=== PATIENT | female | born 1995 | race Caucasian/White ===

== ENCOUNTER → 2017-09-01 13:10 | Outpatient (CLI) | payer MEDICAID, SELFPAY ==
--- NOTE | 2017-09-01 13:18 | US_ITS ---
US OB /maternal detail: INDICATION: ITS.REASON: OB Complete 20 wk + Anatomy Scan ORDERING PHYSICIAN: Vijay Mcmanus MD PATIENT AGE: 22 years TECHNIQUE: ultrasound transabdominal scanning. COMPARISON: No previous relevant studies. FINDINGS: Single viable intrauterine gestation. cephalic position. Placenta: Anterior placenta grade 1. There is average amount fluid. The cervix appears satisfactory. Closed and measuring 3 cm in length. Complete survey performed and was unremarkable on the submitted images as in PACS. No discrete anomalies identified on survey imaging by technologist. Active fetus. Three-vessel cord with satisfactory umbilical cord insertion. 4- chamber heart noted. Survey of brain & ventricles. Face and neck survey unremarkable. Diaphragm and chest views unremarkable. Abdomen: Both kidneys noted and unremarkable. Stomach noted and satisfactory. Spine: Survey of the spine satisfactory with no anomalies identified nor imaged. Both arms and legs noted. Amniotic Fluid: Adequate. Maternal adnexa: No significant findings. Measurements: Average ultrasound age 19w5d. Gestational Age 19w6d. Estimated due date by ultrasound age 0601/21/2018. Estimated weight 291 grams. BPD = 20w1d OFD = 20w4d HC = 19w5d AC = 20w0d FL = 18w5d Heart Rate = 144 bpm Cerebellum = 20w4d Humerus = 19w2d HC/AC is 1.16 (1.09-1.26). CI is 77% (70-68%). FL/BPD is 61%. FL/AC is 19%. IMPRESSION: There is a single live fetus in the cephalic presentation with an average ultrasound age of 19 weeks 5 days.No Obvious anomalies. heart and body motion noted. Anterior placenta. Please see above for detail.
== END ==
PROVIDERS: Family Provider Internal Medicine; PCP Internal Medicine; Visit Provider Nurse Practitioner Obstetrics & Gynecology
DX: Z36.0 Encounter for antenatal screening for chromosomal anomalies (principal)
CPT/HCPCS: 76811

== ENCOUNTER 2017-10-26 15:32 | Emergency (ER) | payer MEDICAID, SELFPAY ==
[2017-10-26 15:46] VITALS: BP 138/82; PULSE 97; RESP 20; TEMP 36.8; O2SAT 98; BMI 40.0
--- NOTE | 2017-10-26 16:36 | HMH.EDUTC ---
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 Give it time to work. Referrals: Vijay Mcmanus MD [Staff Physician] - (as needed for new or worsening symptoms. immediately for ANY change in movement or leaking/bleeding or abdominal pain) Time of Disposition: 16:50 Medical Decision Making - Miguel Inquiry Pt receiving controlled substance: No Vital Signs: 10/26/17 15:46 10/26/17 16:47 Temperature 98.2 F 98.0 F Temperature Source Oral Pulse Rate 95 H Pulse Rate [Right Radial] 97 H Respiratory Rate 20 20 Blood Pressure 135/75 Blood Pressure [Right Arm] 138/82 Blood Pressure Mean [Right Arm] 100 02 Sat by Pulse Oximetry 98 Oxygen Delivery Method Room Air Room Air [facility] [place] HPI - General Stated complaint: Sinus Congestion, Cough Time Seen by Provider: 10/26/17 16:36 Mode of Arrival: Family Vehicle Source of Information: Patient Limitations: No Limitations Description of Symptoms (Recalled from Triage Doc. by RN): PT C/O CONGESTION, SORE THROAT. HEENT Symptoms (Recalled from RN notes): Yes (SORE THROAT, CONGESTION) Resp Symptoms (Recalled from RN notes): No Skin Symptoms (Recalled from RN notes): No MS Symptoms (Recalled from RN notes): No Functional Status (Recalled from RN notes): NA - History of Present Illness Provider Complaint: c/o nasal congestion, rhinirrhea, PND and sore throat x 1 week. Currently 28 weeks w/o abdominal pain, vaginal leaking/bleeding, cramping or change in movement. Symptoms worse at night but unchanged throughout the week. Same symptoms during last . No known sick contacts. No fever. Wasn't sure what to take and too nervous to take anything. Tried claritin for 2 days but got nervous and quit taking it. - Related Data Home Medications Medication Instructions Recorded Confirmed 1 tab PO QHS 08/23/17 10/26/17 vitamin,calcium,hqnljhdf-oewn-toawy acid tablet Ferrous Sulfate [Ferrous Sulfate 325 mg PO DAILY 10/26/17 10/26/17 325mg Tablet] Allergies Allergy/AdvReac Type Severity Reaction Status Date / Time No Known Allergies Allergy Verified 10/19/17 13:48 - Worker's Comp Is this a Worker's Comp case?: No [facility] History I have reviewed the patient's past medical history: Yes Medical History: Denies:: Cancer, Diabetes Mellitus Type 1, Diabetes Mellitus Type 2, Hypertension, MRSA Comment: Other Surgeries: Yes: Amputation: No Fractures: No - Social History Smoking Status: Never smoker Alcohol Intake: never Substance Use Type: denies use - Psychiatric History Expresses thoughts of harming self/others: None Suicide Plan Description: No Plan Family Hx:: Hypertension ROS Obtained: Yes Systems reviewed as appropriate & no additional complaints - Constitutional Constitutional: Reports as per HPI, Denies body ache, Denies chills, Reports difficulty sleeping, Denies fatigue, Denies fever(s), Denies poor appetite - Eyes Eyes: Denies eye discharge, Denies itchy eyes, Denies other (eye redness) - ENT Ears, Nose, Mouth, and Throat: Reports as per HPI, Denies difficulty swallowing, Denies ear discharge, Reports otalgia (fullness and popping at times but no pain), Denies pain with swallowing, Denies throat swelling, Denies other (sneezing) - Cardiovascular Cardiovascular: Denies chest pain, Denies irregular heart rhythm - Respiratory Respiratory: No cough - Gastrointestinal Gastrointestingal: Reports: as per HPI. Denies: diarrhea, vomiting - Integumentary/Breasts Skin/Breast: Denies rash - Neurologic Neurologi
--- NOTE | 2017-10-26 16:44 | ED_ITS ---
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 Give it time to work. Referrals: Vijay Mcmanus MD [Staff Physician] - (as needed for new or worsening symptoms. immediately for ANY change in movement or leaking/bleeding or abdominal pain) Time of Disposition: 16:50 Medical Decision Making - Miguel Inquiry Pt receiving controlled substance: No Vital Signs: 10/26/17 15:46 10/26/17 16:47 Temperature 98.2 F 98.0 F Temperature Source Oral Pulse Rate 95 H Pulse Rate [Right Radial] 97 H Respiratory Rate 20 20 Blood Pressure 135/75 Blood Pressure [Right Arm] 138/82 Blood Pressure Mean [Right Arm] 100 02 Sat by Pulse Oximetry 98 Oxygen Delivery Method Room Air Room Air [facility] [place] HPI - General Stated complaint: Sinus Congestion, Cough Time Seen by Provider: 10/26/17 16:36 Mode of Arrival: Family Vehicle Source of Information: Patient Limitations: No Limitations Description of Symptoms (Recalled from Triage Doc. by RN): PT C/O CONGESTION, SORE THROAT. HEENT Symptoms (Recalled from RN notes): Yes (SORE THROAT, CONGESTION) Resp Symptoms (Recalled from RN notes): No Skin Symptoms (Recalled from RN notes): No MS Symptoms (Recalled from RN notes): No Functional Status (Recalled from RN notes): NA - History of Present Illness Provider Complaint: c/o nasal congestion, rhinirrhea, PND and sore throat x 1 week. Currently 28 weeks w/o abdominal pain, vaginal leaking/bleeding, cramping or change in movement. Symptoms worse at night but unchanged throughout the week. Same symptoms during last . No known sick contacts. No fever. Wasn't sure what to take and too nervous to take anything. Tried claritin for 2 days but got nervous and quit taking it. - Related Data Home Medications Medication Instructions Recorded Confirmed 1 tab PO QHS 08/23/17 10/26/17 vitamin,calcium,kadfxwjr-ycsp-zzaru acid tablet Ferrous Sulfate [Ferrous Sulfate 325 mg PO DAILY 10/26/17 10/26/17 325mg Tablet] Allergies Allergy/AdvReac Type Severity Reaction Status Date / Time No Known Allergies Allergy Verified 10/19/17 13:48 - Worker's Comp Is this a Worker's Comp case?: No [facility] History I have reviewed the patient's past medical history: Yes Medical History: Denies:: Cancer, Diabetes Mellitus Type 1, Diabetes Mellitus Type 2, Hypertension, MRSA Comment: Other Surgeries: Yes: Amputation: No Fractures: No - Social History Smoking Status: Never smoker Alcohol Intake: never Substance Use Type: denies use - Psychiatric History Expresses thoughts of harming self/others: None Suicide Plan Description: No Plan Family Hx:: Hypertension ROS Obtained: Yes Systems reviewed as appropriate & no additional complaints - Constitutional Constitutional: Reports as per HPI, Denies body ache, Denies chills, Reports difficulty sleeping, Denies fatigue, Denies fever(s), Denies poor appetite
[2017-10-26 16:47] VITALS: BP 135/75; PULSE 95; RESP 20; TEMP 36.7; O2SAT 100
== END 2017-10-26 16:52 | disposition home or self-care (01) ==
PROVIDERS: Emergency Provider Nurse Practitioner Family; Family Provider Internal Medicine; PCP Internal Medicine
DX: J30.9 Allergic rhinitis, unspecified (principal); Z3A.28 28 weeks gestation of pregnancy
CPT/HCPCS: 99201

== ENCOUNTER 2017-11-03 11:51 | Outpatient (CLI) | payer MEDICAID, SELFPAY ==
[2017-11-03 12:02] VITALS: BP 118/71; PULSE 90; RESP 16; TEMP 36.6; O2SAT 97; BMI 42.4
[2017-11-03 12:22] LABS: Microscopic, Urine URINE MICROSCOPIC (MICROSCOPIC)
[2017-11-03 12:27] LABS: Appearance,Urine CLEAR (Clear); Bilirubin,Urine Negative (Negative); Blood, Urine Negative (Negative); Color,Urine YELLOW (Yellow); Glucose,Urine (UA) Negative (Negative); Ketones,Urine TRACE (Negative); Leukocyte Esterase,Urine 3+ (Negative); Nitrate,Urine Negative (Negative); Protein,Urine Negative (Negative); Urobilinogen,Urine 0.2 EU/dl (0.2)
[2017-11-03 12:40] LABS: Fetal Membrane Rupture (Rapid) Negative (Negative)
[2017-11-03 12:54] LABS: Bacteria,Urine 1+ /lpf; Squamous Epithelial Cell,Urine 50-100 #/hpf (0-5)
== END 2017-11-03 13:30 | disposition home or self-care (01) ==
LOC: OBOUT 11:53 → OB 11:53
PROVIDERS: PCP Nurse Practitioner Obstetrics & Gynecology; Visit Provider Nurse Practitioner Obstetrics & Gynecology
DX: O26.893 Other specified pregnancy related conditions, third trimester (principal); Z3A.28 28 weeks gestation of pregnancy
CPT/HCPCS: 59025; 81001; 84112; 87086

== ENCOUNTER 2017-12-10 12:38 | Outpatient (CLI) | payer MEDICAID, SELFPAY ==
[2017-12-10 12:51] VITALS: BP 107/67; PULSE 100; RESP 18; TEMP 36.9; O2SAT 97; BMI 43.5
[2017-12-10 13:25] LABS: Microscopic, Urine URINE MICROSCOPIC (MICROSCOPIC)
[2017-12-10 13:28] LABS: Appearance,Urine CLEAR (Clear); Bilirubin,Urine Negative (Negative); Blood, Urine Negative (Negative); Color,Urine YELLOW (Yellow); Glucose,Urine (UA) Negative (Negative); Ketones,Urine Negative (Negative); Leukocyte Esterase,Urine 3+ (Negative); Nitrate,Urine Negative (Negative); Protein,Urine Negative (Negative); Urobilinogen,Urine 0.2 EU/dl (0.2)
[2017-12-10 13:46] LABS: Bacteria,Urine 1+ /lpf; Squamous Epithelial Cell,Urine 50-100 #/hpf (0-5)
[2017-12-10 13:56] LABS: Fetal Fibronectin (Rapid) Negative (Negative)
== END 2017-12-10 14:49 | disposition home or self-care (01) ==
LOC: OBOUT 12:39 → OB 12:40
PROVIDERS: Obstetrics & Gynecology; PCP Nurse Practitioner Obstetrics & Gynecology; Visit Provider Nurse Practitioner Obstetrics & Gynecology
DX: O60.03 Preterm labor without delivery, third trimester (principal); Z3A.34 34 weeks gestation of pregnancy
CPT/HCPCS: 59025; 81001; 82731; 87086; 96360; 96372

== ENCOUNTER → 2017-12-27 15:08 | Outpatient (CLI) | payer MEDICAID, SELFPAY ==
--- NOTE | 2017-12-27 | US_ITS ---
US OB biophysical profile, US OB follow up, US SD Ratio umbilcal artery: Indication: ITS.REASON: US OB- SGA ORDERING PHYSICIAN: Vijay Mcmanus MD PATIENT AGE: 22 years FINDINGS: The following parameters are obtained: Average ultrasound age is 35w5d. Estimated due date by ultrasound is 01/26/2018. Estimated weight is 2804 grams. This is 36 percentile based on last menstrual period. There has been adequate progression. BPD: 36w0d OFD: 34w4d HC: 34w6d AC: 36w6d FL: 34w5d heart rate: 138 bpm. HC/AC: 0.95 (0.93-1.11) Cephalic index: 82% (70-86%) FL/BPD: 76% (71-86%) FL/AC: 21% (20-24%) Amniotic fluid index: 10 cm Qualitative AFV: 2 breathing movements: 2 Gross body movements: 2 Tone: 2 Biophysical profile score: 8/8 Doppler evaluation of the umbilical artery: SD ratio: 2.8 Resistive index: 0.64 No obvious anomalies evident. Placenta: Anterior, grade 2. No previa or abruption Cervix: Appears closed and measures 3 cm IMPRESSION: Single live fetus which is in cephalic presentation with average ultrasound age of 35 weeks and 5 days with an estimated weight of 2804 g which is 36 percentile. No obvious anomalies. Biophysical profile 8 of 8 Unremarkable umbilical artery Doppler Anterior grade 2 placenta
== END ==
PROVIDERS: Family Provider Internal Medicine; PCP Internal Medicine; Visit Provider Nurse Practitioner Obstetrics & Gynecology
DX: Z36.0 Encounter for antenatal screening for chromosomal anomalies (principal)
CPT/HCPCS: 76816; 76819; 76820; 86403

== ENCOUNTER 2017-12-30 15:11 | Outpatient (CLI) | payer MEDICAID, SELFPAY ==
[2017-12-30 15:33] VITALS: BP 119/74; PULSE 108; RESP 20; TEMP 37; O2SAT 100; BMI 42.5
--- NOTE | 2017-12-30 15:59 | P.PN_ITS ---
Internal Medicine - PN: Subj *Date: 12/30/17 *Time: 15:57 Interval history: She came in for a nonstress test because she has not felt the baby move since 9: 00 last night. Exam Vital signs and Labs for Last 24 Hours: Temp Pulse Resp BP Pulse Ox 98.6 F 108 H 20 119/74 100 12/30/17 15:33 12/30/17 15:33 12/30/17 15:33 12/30/17 15:33 12/30/17 15:33 I & O for Last 24 hours: Intake & Output 12/28/17 12/29/17 12/30/17 12/31/17 11:59 11:59 11:59 11:59 Weight 225 lb 0.641 oz - Constitutional no acute distress Assessment and Plan (1) Decreased movement during Current visit: Yes Status: Acute Category: Medical Code(s): O36.8190 - Decreased movements, unspecified trimester, not applicable or unspecified - Assessment and plan all Dx Assessment and Plan for all problems:: We have put her on the monitor and the nonstress test is active. She can feel the baby moving out. She is having an occasional mild contraction. Otherwise she is doing fine. We will send her home to follow-up with Dr. Cordero next week. I will be out of town next week. He is scheduled for a repeat section on January 17, 2018.
== END 2017-12-30 16:05 | disposition home or self-care (01) ==
LOC: OBOUT 15:14 → OB 15:15
PROVIDERS: PCP Nurse Practitioner Obstetrics & Gynecology; Visit Provider Nurse Practitioner Obstetrics & Gynecology
DX: O36.8130 Decreased fetal movements, third trimester, not applicable or unspecified (principal); Z3A.37 37 weeks gestation of pregnancy
CPT/HCPCS: 59025

== ENCOUNTER 2018-01-14 07:30 | Inpatient (IN) ==
[2018-01-17 06:18] LABS: Basophils % 0.2 % (0.1-2.0); Eosinophils # 0.3 K/mm3 (0.0-0.4); Eosinophils % 3.3 % (0.1-12.0); Hematocrit 44.1 % (37.0-47.0); Hemoglobin 13.4 g/dL (12.2-16.2); Lymphocytes # 1.9 K/mm3 (0.7-4.5); Lymphocytes % 23.9 K/mm3 (10-50); Mean Corpuscular HGB Conc 30.5 g/dL (31.8-35.4); Mean Corpuscular Hemoglobin 30.4 pg (27.0-31.2); Mean Corpuscular Volume 99.7 fl (81-99); Mean Platelet Volume 11.5 fl (7.4-10.4); Monocytes # 0.5 K/mm3 (0.1-1.0); Monocytes % 6.3 % (1.7-9.3); Neutrophils # 5.3 K/mm3 (1.8-7.8); Neutrophils % 66.4 % (37.0-80.0); Platelet Count 154 K/mm3 (142-424); Red Blood Count 4.42 M/mm3 (4.20-5.40); Red Cell Distribution Width 13.1 % (11.5-17.5)
[2018-01-17 06:25] LABS: Anion Gap 14.6 mEq/L (5-15); Calcium 8.2 mg/dL (8.5-10.1); Potassium 4.6 mmoL/L (3.5-5.1)
--- NOTE | 2018-01-17 06:58 | Progress Note ---
[facility] Anesthesia Checklist - Patient Identification Patient Identification: Arm Band - Structural Data Admitted From: Inpatient Planned Operative Procedure/s: repeat c/s Consent for Planned Operative Procedure(s) Verified: Yes Verified Documents: Surgical Consent, History and Physical - NPO Status Verified Time NPO: 00:00 - Additional verifications Anesthesia Reactions: No - Airway Assessment C-Spine Mobility Assessed: Yes (mp2) TMJ Mobility Assessed: Yes Dentition: Good Dentition - Neurological Assessment Level of Consciousness: Awake, Alert - Anesthesia Plan Anesthesia Risk discussed: Yes Anesthesia Plan: Verified ASA Class: II Anesthesia Type: Spinal [facility] Anesthesia HX I have reviewed the patient's past medical history: Yes Medical History: Denies:: Cancer, Diabetes Mellitus Type 1, Diabetes Mellitus Type 2, Hypertension, MRSA Other Surgeries: Yes: Amputation: No Fractures: No *Family Hx:: Hypertension
--- NOTE | 2018-01-17 08:14 | Operative Note ---
Date of procedure: 01/17/18 Pre-op Diagnosis:: Term previous section Post-op Diagnosis:: Term , previous section Procedure performed:: Repeat lower segment transverse section Surgeon:: Vijay Mcmanus MD House Detective(s):: Dr. Clinton METAL CLEANER:: Maulik Ayon Anesthesia: spinal Estimated blood loss (mL): 600 Clinical Note:: She is a 22-year-old 2 para 1 who was 39 and 4 weeks gestational age. She has had a previous section and as result of that was offered repeat lower segment transverse section at term. Risks and benefits of surgery were discussed with patient prior to surgery. Operative findings:: She delivered a liveborn female child at 7:45 AM on the ring of January 17, 2018. The baby weighed 7 lbs. 15 oz. and had Apgars of 8 at 1 minute and 5 minutes. Ovaries and tubes appeared normal. Operative note:: She was taken to the operating room where epidural anesthesia was found be adequate. She was prepped and draped in normal sterile fashion in the supine position with a leftward tilt. A Lane catheter was in the bladder. A Pfannenstiel skin incision was made with knife then carried through to the underlying layer of fascia with cautery. The fascia was opened in the midline with cautery and extended laterally using Burgos scissors. Toro clamps were applied to the superior aspect of the fascial incision which was tented up and the underlying rectus muscles dissected off using cautery. The Toro clamps were then applied to the inferior aspect of the fascial incision which in a similar fashion was tented up and the underlying rectus muscles dissected off using cautery. The rectus muscles were then in the midline, the peritoneum identified, and entered sharply with Metzenbaum scissors. This incision was then extended superiorly and inferiorly with cautery. We had good visualization of the bladder inferiorly. The bladder peritoneum was then opened in the midline and extended laterally using Metzenbaum scissors. A bladder flap was created digitally. The lower blade of the Quentin was inserted so as to push the bladder out of the way. Transverse incision was made through the uterine muscle to the amnion. This incision was then extended laterally using fingers traction. The amnion was entered sharply with knife. The infant's head was then delivered atraumatically. This was followed by the anterior shoulder and the rest of the 's body atraumatically. The oropharynx and nasopharynx were bulb suctioned. The infant was then handed off to Dr. Monroy who assigned Apgars of 8 at 1 minute and 9 at 5 minutes. We then obtained cord blood as well as cord pH. Using gentle traction on the cord and countertraction on the fundus I was able to easily deliver the placenta intact. It had a normal three-vessel cord. The uterus was then cleared of clots and debris and exteriorized from the abdominal cavity. The uterine incision was then closed using running 0 Vicryl suture in a locked fashion. A second layer of the same suture was used to imbricate the first layer. The bladder peritoneum was then closed using running 2-0 Vicryl suture in a locked fashion. The gutters and cul-de-sac were then cleared of clots and debris and the uterus was returned the abdominal cavity. Once again hemostasis was assured. The peritoneum was grasped with Pat clamps and closed using running 2-0 Vicryl suture. The rectus muscles were then reapproximated using running 0 Vicryl suture. The fascia was closed using running #1 Vicryl suture. The subcutaneous tissues were then irrigated with warm water followed by closure Charan's fascia using running 2-0 Monocryl suture. The skin was closed with katrina. The incision was then further cleaned with Hibiclens twice. Sterile dressings were applied. She tolerated the procedure well and was taken to the recovery room in excellent condition. All sponges minute and needle counts were correct. Estimate a blood loss was approximately 600 mL. Condition: stable Disposition: PACU Specimens:: Products of conception Complications:: None
--- NOTE | 2018-01-17 08:16 | Progress Note ---
[facility] Part I Intake, IV Amount: 850 Estimated blood loss (mL): 600 Urine output (mL): 100 Blood Products used (#): none Blood Pressure: 119/67 SaO2: 97 Pulse Rate: 82 Respiratory Rate: 20 Temperature: 98.2 F Patient is:: Awake, Stable Stable to PACU at:: 08:13
--- NOTE | 2018-01-17 08:17 | Progress Note ---
[facility] Anesthesia Record Part II Discharge Time: 08:43 Destination: Obstetric PACU nurse assessment reviewed?: Yes Patient Condition:: Good Anesthesia Complications:: None
--- NOTE | 2018-01-17 08:40 | History & Physical Report ---
OB - H&P: HPI Antepartum - History of Present Illness Chief complaint: Term , previous section History of present illness: She is a 22-year-old 2 para 1 who is 39 weeks gestational age. She has had a previous section and as result of that was scheduled for a repeat lower segment transverse section. The risks and benefits of surgery were discussed with the patient prior to surgery. - History of Present Criteria for establishing EDC:: LMP confirmed by 1st trimester US care: good care Ultrasounds: normal 1st trimester US, normal mid trimester US Obstetrical complications: none Medical complications: none - Labs Blood type: O (+) positive Rubella: immune RPR/VDRL: nonreactive GBS status: negative [facility] History I have reviewed the patient's past medical history: Yes Medical History: Denies:: Cancer, Diabetes Mellitus Type 1, Diabetes Mellitus Type 2, Hypertension, MRSA Other Surgeries: Yes: Amputation: No Fractures: No - *Social History Smoking Status: Never smoker Alcohol Intake: never Substance Use Type: denies use *Family Hx:: Hypertension Para: 1 Review of Systems - Review of Systems Review of systems:: pertinent systems reviewed and negative unless documented below Meds Home Medications Medication Instructions Recorded Confirmed Type Ferrous Sulfate [Ferrous Sulfate 325 mg PO DAILY 10/26/17 01/17/18 History 325mg Tablet] 1 tab PO DAILY tab 11/09/17 01/17/18 History vitamin,calcium,eykgxxro-ryjd-jvhfo acid tablet Allergies Allergy/AdvReac Type Severity Reaction Status Date / Time No Known Allergies Allergy Verified 01/10/18 14:20 OB - H&P: Exam - Physical Exam Vital signs: Temp Pulse Resp BP Pulse Ox 98.2 F 82 20 119/67 98 01/17/18 08:16 01/17/18 08:16 01/17/18 08:16 01/17/18 08:16 01/17/18 05:38 - Constitutional no acute distress - Routine HEENT Exam Head: Present: normocephalic - Routine Neck Exam Present: supple - Routine Respiratory Exam Comments: Good air entry bilaterally, no accessory muscle use. - Routine Cardiovascular Exam Present: RRR - Routine Abdominal Exam Present: soft OB - Results - Labs Labs: Short CBC 01/17/18 Range/Units 06:05 WBC 8.0 (4.8-10.8) K/mm3 Hgb 13.4 (12.2-16.2) g/dL Hct 44.1 (37.0-47.0) % Plt Count 154 (142-424) K/mm3 BMP 01/17/18 06:05 Sodium 135 L Potassium 4.6 Chloride 107 Carbon Dioxide 18 L BUN 4 L Creatinine 0.48 L Glucose 93 Calcium 8.2 L OB - A/P Antepartum (1) Previous section Current visit: No Status: Acute - Additional Plan Planning to breastfeed?: Yes Additional Information:: She is here for a repeat lower segment transverse section.
--- NOTE | 2018-01-17 14:50 | Pharmacy Consult Notes ---
[facility] Pharmacy VTE Monitoring - Patient Demographics Admission date: 01/17/18 Report Date: 01/17/18 Time: 14:50 Allergies/Adverse Reactions: Patient Allergies No Known Allergies Allergy (Verified 01/10/18 14:20) Height: 1.55 m Weight: 104.326 kg - VTE Risk Labs: VTE Related Lab Results Hgb 13.4 g/dL (12.2-16.2) 01/17/18 06:05 Hct 44.1 % (37.0-47.0) 01/17/18 06:05 Plt Count 154 K/mm3 (142-424) 01/17/18 06:05 BUN 4 mg/dL (7-18) L 01/17/18 06:05 Creatinine 0.48 mg/dL (0.55-1.02) L 01/17/18 06:05 Estimated Creat Clear 139 mL/min (0-300) 01/17/18 06:05 Clinical Trial Participant: No - Prophylaxis VTE Prophylaxis Ordered?: Yes Types of VTE Prophylaxis: IPCS Knee High (POSTOP)
[2018-01-18 06:01] LABS: Basophils % 0.1 % (0.1-2.0); Eosinophils # 0.1 K/mm3 (0.0-0.4); Eosinophils % 0.9 % (0.1-12.0); Hematocrit 40.4 % (37.0-47.0); Hemoglobin 12.9 g/dL (12.2-16.2); Lymphocytes # 1.5 K/mm3 (0.7-4.5); Lymphocytes % 9.4 K/mm3 (10-50); Mean Corpuscular Hemoglobin 30.3 pg (27.0-31.2); Mean Corpuscular Volume 94.8 fl (81-99); Mean Platelet Volume 10.6 fl (7.4-10.4); Monocytes # 0.9 K/mm3 (0.1-1.0); Monocytes % 5.3 % (1.7-9.3); Neutrophils # 13.8 K/mm3 (1.8-7.8); Neutrophils % 84.4 % (37.0-80.0); Platelet Count 205 K/mm3 (142-424); Red Blood Count 4.27 M/mm3 (4.20-5.40); Red Cell Distribution Width 13.1 % (11.5-17.5); White Blood Count 16.3 K/mm3 (4.8-10.8)
[2018-01-18 06:56] LABS: Eosinophils % 2 % (0-3); Lymphocytes % 7 % (10-50); Monocytes % 3 % (2-9); Neutrophils % 88 % (42-76); RBC Morphology Normal; Total Cells Counted 100
--- NOTE | 2018-01-18 08:27 | Progress Note ---
Internal Medicine - PN: Subj *Date: 01/18/18 *Time: 08:26 Interval history: She continues to do well. She is eating and drinking and ambulating. She is breast-feeding. Her lochia is normal. She did have some increased clots after her surgery and I was able to clear out some clots from her uterus. She has been receiving Cytotec since yesterday for 24 hours. She seems to be doing better. Exam Vital signs and Labs for Last 24 Hours: Temp Pulse Resp BP Pulse Ox 98.4 F 93 H 18 123/75 98 01/17/18 20:50 01/17/18 20:50 01/17/18 20:50 01/17/18 20:50 01/17/18 20:50 Laboratory Results - last 24 hr 01/17/18 : Urine Color Yellow, Urine Appearance Clear, Urine pH 7.0, Ur Specific Shattuck 1.010, Urine Protein Negative, Urine Glucose (UA) Negative, Urine Ketones Negative, Urine Blood Negative, Urine Nitrate Negative, Urine Bilirubin Negative, Urine Urobilinogen 0.2, Ur Leukocyte Esterase Negative, Ur Squamous Epith Cells Occasional 01/18/18 05:35: WBC 16.3 H D, RBC 4.27, Hgb 12.9, Hct 40.4, MCV 94.8, MCH 30.3, MCHC 32.0, RDW 13.1, Plt Count 205 D, MPV 10.6 H, Neut % (Auto) 84.4 H, Lymph % (Auto) 9.4 L, Wallace % (Auto) 5.3, Eos % (Auto) 0.9, Baso % (Auto) 0.1, Neut # ( Auto) 13.8 H, Lymph # (Auto) 1.5, Wallace # (Auto) 0.9, Eos # (Auto) 0.1, Baso # ( Auto) 0.0, Total Counted 100, Neutrophils % (Manual) 88 H, Lymphocytes % (Manual ) 7 L, Monocytes % (Manual) 3, Eosinophils % (Manual) 2, Platelet Estimate Normal, RBC Morphology Normal I & O for Last 24 hours: Intake & Output 01/15/18 01/16/18 01/17/18 01/18/18 11:59 11:59 11:59 11:59 Intake Total 850 / 850 Output Total 100 / 100 Balance 750 / 750 Weight 230 lb 230 lb - Constitutional no acute distress Assessment and Plan (1) Previous section Current visit: No Status: Acute Category: Surgical Code(s): Z98.891 - History of uterine scar from previous surgery - Assessment and plan all Dx Assessment and Plan for all problems:: She is doing better this morning. Her lochia is normal. She is breast- feeding. We will plan to send her home in 48 hours.
--- NOTE | 2018-01-19 07:29 | Discharge Summary ---
General - General Admission date:: 01/17/18 Discharge date: 01/19/18 HPI HPI: She is a 22-year-old 2 now para 2 who was 39 weeks gestational age. She has had a previous section as result of that was offered repeat lower segment section at term. Hospital Course Hospital Course: On January 17, 2018 she underwent a repeat lower segment transverse section and delivered a liveborn female child. The baby weighed 7 lbs. 15 oz. and was 18-1/2 inches long. She had Apgars of 8 at 1 minute and 9 at 5 minutes. She has done well and has remained afebrile throughout her hospitalization. She is eating and drinking and ambulating. She is breast- feeding. Her lochia is normal. She has O+ blood, she is rubella immune and was group A streptococcus negative. She is discharged home to follow-up with me in approximately 5 days time where she will have her katrina removed. She will keep her incision clean and dry. She will clean it with Hibiclens daily. She was given a prescription for Percocet 5/325, 30 tablets Objective Vital signs: Temp Pulse Resp BP Pulse Ox 98.3 F 83 20 127/64 98 01/19/18 04:00 01/19/18 04:00 01/19/18 04:00 01/19/18 04:00 01/19/18 04:00 no acute distress - *Routine HEENT Exam Head: Present: normocephalic DS: Diagnosis - Discharge Diagnosis (1) Previous section Status: Acute Discharge Plan - Patient Discharge Instructions ACTIVITY: No heavy lifting DIET: continue same diet - Follow up Plan Disposition: Home, Self-Longterm Medications: Home Medications Medication Instructions Recorded Confirmed Type Ferrous Sulfate [Ferrous Sulfate 325 mg PO DAILY 10/26/17 01/17/18 History 325mg Tablet] 1 tab PO DAILY tab 11/09/17 01/17/18 History vitamin,calcium,gelqdimr-mxgc-iktob acid tablet Prescriptions/Medication Reconciliation: Continue vitamin,calcium,bbnmquue-jczt-kepgh acid tablet 1 tab PO DAILY tab Ferrous Sulfate [Ferrous Sulfate 325mg Tablet] 325 mg PO DAILY
== END 2018-01-19 10:45 | disposition home or self-care (01) ==
LOC: OB 01-17 05:14
PROVIDERS: ADMIT Nurse Practitioner Obstetrics & Gynecology; ATTEND Nurse Practitioner Obstetrics & Gynecology

== ENCOUNTER → 2021-04-08 14:38 | Outpatient (CLI) | payer BC, SELFPAY | PROVIDERS: PCP Internal Medicine; Visit Provider Internal Medicine | DX: Z20.822 Contact with and (suspected) exposure to COVID-19 (principal) | CPT/HCPCS: U0003 ==

== ENCOUNTER → 2021-06-25 16:26 | Outpatient (CLI) | payer BC, SELFPAY | PROVIDERS: PCP Internal Medicine; Visit Provider Internal Medicine | DX: Z20.822 Contact with and (suspected) exposure to COVID-19 (principal) | CPT/HCPCS: C9803; U0003; U0005 ==

== ENCOUNTER → 2022-08-20 06:39 | Outpatient (CLI) | payer BC, OTHER, SELFPAY | PROVIDERS: PCP Student in an Organized Health Care Education/Training Program; Visit Provider Student in an Organized Health Care Education/Training Program | DX: J02.9 Acute pharyngitis, unspecified (principal) | CPT/HCPCS: 87070 ==

== ENCOUNTER → 2022-08-28 11:18 | Outpatient (CLI) | payer BC, OTHER, SELFPAY ==
[2022-08-28 12:44] LABS: HCG,Quantitative 620 mIU/ml (0-5.42)
== END ==
PROVIDERS: PCP Internal Medicine; Visit Provider Nurse Practitioner Obstetrics & Gynecology
DX: Z32.01 Encounter for pregnancy test, result positive (principal)
CPT/HCPCS: 36415; 84702

== ENCOUNTER → 2022-09-17 16:50 | Outpatient (CLI) | payer BC, OTHER, SELFPAY ==
[2022-09-17 17:38] LABS: Amphetamine/Metha Screen,Urine Negative ng/ml (<1000); Barbiturates Screen,Urine Negative ng/ml (<200); Benzodiazepines Screen,Urine Negative ng/ml (<200); Cannabinoid Screen,Urine Negative ng/ml (<50); Cocaine Screen,Urine Negative ng/ml (<300); Methadone Screen,Urine Negative ng/ml (<300); Opiate Screen,Urine Negative ng/ml (<300); Phencyclidine Screen,Urine Negative ng/ml (<25)
== END ==
PROVIDERS: Visit Provider Nurse Practitioner Obstetrics & Gynecology
DX: Z34.90 Encounter for supervision of normal pregnancy, unspecified, unspecified trimester (principal)
CPT/HCPCS: 80305; 87086

== ENCOUNTER → 2022-09-18 12:19 | Outpatient (CLI) | payer BC, OTHER, SELFPAY ==
[2022-09-18 17:00] LABS: Basophils # 0.1 K/mm3 (0-0.2); Basophils % 1.1 % (0.1-2.0); Eosinophils # 0.2 K/mm3 (0.0-0.4); Eosinophils % 2.5 % (0.1-12.0); Hematocrit 42.5 % (37.0-47.0); Hemoglobin 13.8 g/dL (12.2-16.2); Lymphocytes # 1.9 K/mm3 (0.7-4.5); Lymphocytes % 20.7 % (10-50); Mean Corpuscular HGB Conc 32.5 g/dL (31.8-35.4); Mean Corpuscular Hemoglobin 31.6 pg (27.0-31.2); Mean Corpuscular Volume 97.2 fl (81-99); Mean Platelet Volume 11.2 fl (7.4-10.4); Monocytes # 0.5 K/mm3 (0.1-1.0); Monocytes % 5.5 % (1.7-9.3); Neutrophils # 6.4 K/mm3 (1.8-7.8); Neutrophils % 70.1 % (37.0-80.0); Platelet Count 259 K/mm3 (142-424); Red Blood Count 4.37 M/mm3 (4.20-5.40); White Blood Count 9.1 K/mm3 (4.8-10.8)
[2022-09-20 11:08] LABS: HIV Screen 4th Generation wRfx Non Reactive (Non Reactive); Rapid Plasma Reagin Ab Titer Non Reactive (NonRea<1:1); Rubella Antibodies, IgG 3.58 index (Immune >0.99)
[2022-09-22 23:16] LABS: Hepatitis B Surface Antigen NEGATIVE
[2022-09-22 23:17] LABS: Hepatitis C Antibody <0.1
== END ==
LOC: LAB 12:24
PROVIDERS: PCP Internal Medicine; Visit Provider Nurse Practitioner Obstetrics & Gynecology
DX: Z34.90 Encounter for supervision of normal pregnancy, unspecified, unspecified trimester (principal)
CPT/HCPCS: 36415; 85025; 86593; 86703; 86762; 86850; 87340; 87380; G0432

== ENCOUNTER → 2022-11-16 17:11 | Outpatient (CLI) | payer BC, OTHER, SELFPAY ==
--- NOTE | 2022-11-16 17:12 | US_ITS ---
FINAL REPORT CLINICAL HISTORY: for dates FINDINGS: There is a single live intrauterine gestation. Clarita-rump length measures 9.8 cm corresponding to 15 week 5 day gestation. Heart rate is identified at 130 beats per minutes. The placenta is posterior grade 1. IMPRESSION: Single living IUP with an ultrasound age of 15 weeks 5 days. Reviewed, Interpreted and Dictated by Yasir Lyles III, MD Transcribed by Arleen Mckee Authenticated and [facility]
== END ==
PROVIDERS: PCP Internal Medicine; Visit Provider Nurse Practitioner Obstetrics & Gynecology
DX: Z34.90 Encounter for supervision of normal pregnancy, unspecified, unspecified trimester (principal); Z3A.14 14 weeks gestation of pregnancy
CPT/HCPCS: 76805

== ENCOUNTER 2022-12-01 07:31 | Emergency (ER) | payer BC, OTHER, SELFPAY ==
[2022-12-01 07:41] VITALS: BP 132/79; PULSE 78; RESP 16; TEMP 36.9; O2SAT 98
--- NOTE | 2022-12-01 07:41 | PC.NURSE ---
[facility] via [facility]
[2022-12-01 07:42] VITALS: PULSE 76; O2SAT 98
[2022-12-01 07:45] VITALS: PULSE 74; O2SAT 98
[2022-12-01 08:00] VITALS: BP 133/79; PULSE 65; O2SAT 96
--- NOTE | 2022-12-01 08:23 | PC.NURSE ---
lab called for blood collection
--- NOTE | 2022-12-01 08:50 | HMH.EDGENADL ---
Discharge Plan Disposition Patient Disposition: Home, Self-Care Chief Complaint: Fall Prescriptions Prescriptions: No Action prenat.vits,jd,kca-zcmo-orwpp Tablet 1 tab PO DAILY Referrals Follow up/Referrals: Jann Owens MD [Primary Care Provider] - See instructions Clinical Impressions Clinical Impression: Abdominal pain, Discharge ED Provider: Derek Fine General Adult HPI General Chief complaint: Fall Stated complaint: 18 Wks , fall@home 12/01 fell on belly Time Seen by Provider: 12/01/22 08:00 Mode of Arrival: Ambulatory Source of Information: Patient Limitations: No Limitations Description of Symptoms (Recalled from ER Triage Doc. by RN): pt comes in with fall that occurred this am. pt was walking up the steps, missed a step and fell foward onto belly. pt 17w5d . 3rd . pt follows with dr roberson. History of Present Illness HPI narrative: 27-year-old female presents with abdominal trauma. She apparently was walking up steps this morning missed a step and fell forward onto her abdomen. She has mild upper abdominal pain no lower abdominal tenderness. No vaginal bleeding or spotting. No GI bleeding nausea or vomiting. Did not hit her head or lose consciousness or any other concerns Related Data Home Medications Medication Instructions Recorded Confirmed prenat.vits,jd,zib-caqj-lrfsp 1 tab PO DAILY 09/17/22 11/05/22 Allergies Allergy/AdvReac Type Severity Reaction Status Date / Time No Known Allergies Allergy Verified 11/05/22 10:33 [facility] Disclaimer: The information contained in this section may have been updated after the patient was seen, as this information can be updated by other users. Medical History Surgical History Hx of section Family History Other No significant family history Social History Smoking Status: Never smoker alcohol intake: never substance use type: denies use current occupational status: employed Travel in the last 8 weeks: None household members: spouse and children housing: house ROS Obtained: Yes All systems reviewed & no additional complaints except as documented Constitutional Constitutional: Denies fatigue and Denies fever(s) Eyes Eyes: Denies dry eyes ENT Ears, Nose, Mouth, and Throat: Denies dry mouth Cardiovascular Cardiovascular: Denies dyspnea Respiratory Respiratory: Denies dyspnea Gastrointestinal Gastrointestingal: Denies constipation Genitourinary Female Genitourinary: Denies hematuria Musculoskeletal Musculoskeletal: Denies joint swelling Integumentary/Breasts Skin/Breast: Denies dry skin Neurologic Neurologic: Denies confusion Endocrine Endocrine: Denies fatigue Physical Exam General General appearance: alert and in no apparent distress Eye Eye exam: Present PERRL and EOMI ENT ENT exam: Present normal exam and normal oropharynx Neck Neck exam: Present normal inspection Chest Chest inspection: Present symmetric chest wall rise Respiratory Respiratory exam: Present normal lung sounds bilaterally; Absent respiratory distress Cardiovascular Cardiovascular exam: Present regular rate and normal rhythm Abdominal Exam Abdominal exam: Present soft and tenderness (Mild tenderness to epigastric region gravid to umbilicus); Absent distention, guarding, rebound, Schilling's sign or tenderness at McBurney's Point Back Exam Back exam: Present normal inspection Neurological Exam Neurological exam: Present alert and oriented X3 Psychiatric Psychiatric exam: Present normal affect and normal mood Skin Skin exam: Present warm, dry and intact Lymphatic Lymphatic Findings: no adenopathy Medical Decision Making Medical Records Medical records reviewed: Satya
[2022-12-01 08:51] LABS: Basophils % 0.2 % (0.1-2.0); Eosinophils # 0.3 K/mm3 (0.0-0.4); Eosinophils % 2.7 % (0.1-12.0); Hematocrit 42.9 % (37.0-47.0); Lymphocytes # 1.5 K/mm3 (0.7-4.5); Lymphocytes % 16.6 % (10-50); Mean Corpuscular HGB Conc 32.7 g/dL (31.8-35.4); Mean Corpuscular Hemoglobin 31.4 pg (27.0-31.2); Mean Corpuscular Volume 95.9 fl (81-99); Mean Platelet Volume 9.8 fl (7.4-10.4); Monocytes # 0.4 K/mm3 (0.1-1.0); Monocytes % 3.8 % (1.7-9.3); Neutrophils # 7.1 K/mm3 (1.8-7.8); Neutrophils % 76.6 % (37.0-80.0); Platelet Count 207 K/mm3 (142-424); Red Blood Count 4.47 M/mm3 (4.20-5.40); Red Cell Distribution Width 12.9 % (11.5-17.5); White Blood Count 9.2 K/mm3 (4.8-10.8)
[2022-12-01 08:53] LABS: Chloride 105 mmol/L (98-107); Potassium 3.7 mmoL/L (3.5-5.1); Sodium 134 mmol/L (136-145)
[2022-12-01 08:55] LABS: Alanine Aminotransferase 22 U/L (12-78); Alkaline Phosphatase 63 U/L (38-126); Aspartate Amino Transferase 30 U/L (14-36); Bilirubin,Total 0.5 mg/dl (0.2-1.3); Blood Urea Nitrogen 6 mg/dl (7-17); Creatinine Clearance Estimated 30 mL/min (50-200); Estimated Glomerular Filt Rate 148 ml/min (>60); GFR (African American) 179 ML/MIN (>60)
[2022-12-01 08:56] LABS: Albumin Level 3.7 g/dl (3.5-5.0); Albumin/Globulin Ratio 1.2 (1.1-1.8); Anion Gap 7.7 mEq/L (5-15); Calcium 8.5 mg/dl (8.4-10.2); Carbon Dioxide 25 mmol/L (22.0-30.0); Globulin 3.2 g/dL (1.3-3.2); Glucose 83 mg/dl (74-100); Lipase 74 U/L (23-300); Total Protein,Serum 6.9 g/dl (6.3-8.2)
--- NOTE | 2022-12-01 09:04 | PC.NURSE ---
paging dr roberson to speak olga crook
--- NOTE | 2022-12-01 09:07 | PC.NURSE ---
olga crook speaking with dr roberson about pt
--- NOTE | 2022-12-01 09:08 | PC.NURSE ---
ER in room updating pt on POC
[2022-12-01 09:36] VITALS: BP 114/78; PULSE 71; RESP 20; TEMP 36.8; O2SAT 97
== END 2022-12-01 09:38 | disposition home or self-care (01) ==
PROVIDERS: Emergency Provider Emergency Medicine; PCP Internal Medicine
DX: O9A.212 Injury, poisoning and certain other consequences of external causes complicating pregnancy, second trimester (principal); R10.10 Upper abdominal pain, unspecified; Z3A.17 17 weeks gestation of pregnancy; W10.9XXA Fall (on) (from) unspecified stairs and steps, initial encounter
CPT/HCPCS: 36415; 80053; 83690; 85025; 99284

== ENCOUNTER → 2022-12-24 12:49 | Outpatient (CLI) | payer BC, OTHER, SELFPAY ==
--- NOTE | 2022-12-24 12:53 | US_ITS ---
FINAL REPORT CLINICAL HISTORY: 20 week anatomy scan FINDINGS: There is a single live intrauterine gestation. Presentation is cephalic. The cervix is closed and measures 3.3 cm. Placenta is posterior grade 1. movement is noted. Heart rate is detected at 146 beats per minute. Three-vessel cord with satisfactory umbilical cord insertion. Four-chamber heart is noted. ABDOMEN: Both kidneys are unremarkable. Stomach is unremarkable. SPINE: No anomalies identified. AMNIOTIC FLUID: Appropriate amount. MEASUREMENTS: ULTRASOUND AGE: 20 weeks 5 days. GESTATION AGE: 21 weeks 0 days. ESTIMATED WEIGHT: 380 g GROWTH PERCENTILE: 35 % BPD: 4.79 cm corresponding to 20 weeks 4 days. OFD: 6.08 cm corresponding to 20 weeks 4 days. HC: 17.19 cm corresponding to 19 weeks 6 days. AC: 15.78 cm corresponding to 21 weeks 0 days. FL: 3.49 cm corresponding to 21 weeks 1 day. CEREBELLUM: 2.06 cm corresponding to 20 weeks 6 days. HUMERUS: 3.26 cm corresponding to 21 weeks 0 days. HC/AC: 1.09 CI: 79% FL/BPD: 73% FL/AC: 22% IMPRESSION: Single living IUP with an ultrasound age of 20 weeks 5 days. Reviewed, Interpreted and Dictated by Yasir Lyles III, MD Transcribed by Arleen Mckee Authenticated and [facility]
== END ==
PROVIDERS: PCP Internal Medicine; Visit Provider Nurse Practitioner Obstetrics & Gynecology
DX: Z34.90 Encounter for supervision of normal pregnancy, unspecified, unspecified trimester (principal); Z3A.20 20 weeks gestation of pregnancy
CPT/HCPCS: 76811

== ENCOUNTER 2023-02-11 07:45 | Emergency (ER) | payer BC, OTHER, SELFPAY ==
[2023-02-11 07:51] VITALS: BP 146/81; PULSE 75; RESP 18; TEMP 36.9; O2SAT 97; BMI 43.9
--- NOTE | 2023-02-11 07:54 | XR_ITS ---
FINAL REPORT CLINICAL HISTORY: fall, lt wrist pain COMPARISON: None FINDINGS: 2 views of the left forearm were obtained. There is a transverse fracture of the distal radius and the base of the ulnar styloid process. There is mild distraction of the distal fracture fragment. The joints are intact. There are no soft tissue abnormalities. IMPRESSION: Transverse fracture of the distal radius and the base of the ulnar styloid process. Reviewed, Interpreted and Dictated by Yasir Lyles III, MD Transcribed by Sonya Nassar Authenticated and [facility] [place]
[2023-02-11 08:00] VITALS: BP 130/91; PULSE 86; O2SAT 97
--- NOTE | 2023-02-11 08:03 | PC.NURSE ---
heart tones 159 bpm on doppler.
--- NOTE | 2023-02-11 08:07 | PC.NURSE ---
pt to xray
--- NOTE | 2023-02-11 08:24 | HMH.EDGENADL ---
Discharge Plan Disposition Patient Disposition: Home, Self-Care Prescriptions Prescriptions: No Action prenat.vits,jd,swd-lzdm-lkadd Tablet 1 tab PO DAILY ferrous sulfate 325 mg (65 mg iron) tablet 325 mg PO DAILY Referrals Follow up/Referrals: Jann Owens MD [Primary Care Provider] - See instructions Franco Orourke DO [Staff Physician] - See instructions (within one week ) Clinical Impressions Clinical Impression: Distal radius fracture, left Discharge ED Provider: Cyndie Cordero General Adult HPI General Chief complaint: Fall Stated complaint: Fall@home 02/10 LT arm pain Time Seen by Provider: 02/11/23 08:11 Mode of Arrival: Ambulatory Source of Information: Patient Limitations: Physical Limitations Description of Symptoms (Recalled from ER Triage Doc. by RN): Pt. states she fell down the stairs this morning around 7:00 am. She states she is having left arm, wrist pain. She is also 28 wks . History of Present Illness HPI narrative: Patient is a 27-year-old G3, P2 at 28 weeks gestational age presenting today with a fall and left wrist injury. She was outside her stairs were slippery wet and she slipped and fell making sure not to fall onto her abdomen she fell onto her backside and onto her left arm. She denies any abdominal trauma. She states she has not had any abdominal pain loss of fluid contractions she still feeling the baby move. Prior to my assessment nurses did a bedside Doppler which showed normal heart rate. Patient states she only has left wrist pain at the distal radius location. No obvious deformities from historical standpoint and she is able to move everything with normal sensation. Related Data Home Medications Medication Instructions Recorded Confirmed prenat.vits,jd,iqc-mlnb-qxwbj 1 tab PO DAILY 09/17/22 02/11/23 ferrous sulfate 325 mg (65 mg 325 mg PO DAILY Supplement 02/11/23 02/11/23 iron) tablet Allergies Allergy/AdvReac Type Severity Reaction Status Date / Time No Known Allergies Allergy Verified 01/27/23 16:11 [facility] Disclaimer: The information contained in this section may have been updated after the patient was seen, as this information can be updated by other users. Medical History Surgical History Hx of section Family History Other No significant family history Social History (Updated 02/11/23 @ 07:51 by Renee Hull RN) Smoking Status: Never smoker alcohol intake: never substance use type: denies use current occupational status: employed Travel in the last 8 weeks: None household members: spouse and children housing: house ROS Obtained: Yes All systems reviewed & no additional complaints except as documented Physical Exam General General appearance: alert Respiratory Respiratory exam: Present normal lung sounds bilaterally; Absent respiratory distress Cardiovascular Cardiovascular exam: Present regular rate; Absent tachycardia Extremities Exam Extremities exam: Present other (Left upper extremity distal radius tenderness palpation no significant soft tissue swelling or deformity neurovascular intact) Neurological Exam Neurological exam: Present alert and oriented X3 Medical Decision Making Miguel Inquiry Pt receiving controlled substance: No Vital Signs: 02/11/23 07:51 Temperature 98.4 F Temperature Source Oral Pulse Rate [Right Brachial] 75 Respiratory Rate 18 Blood Pressure [Right Arm] 146/81 H Blood Pressure Mean [Right Arm] 102 Blood Pressure Source [Right Arm] Automatic Cuff Blood Pressure Position [Right Arm] Sitting 02 Sat by Pulse Oximetry 97 Oxygen Delivery Method Room Air Orders (Tests/Meds): ORDERS Category Date Time Status XR forearm LT 2V Stat Exams 02/11/23 07:54 Ta
[2023-02-11 08:30] VITALS: BP 101/64; PULSE 83; O2SAT 95
--- NOTE | 2023-02-11 08:57 | PC.NURSE ---
Volar splint applied to left wrist. no complications, pt tolerated well.
[2023-02-11 09:09] VITALS: BP 101/64; PULSE 83; RESP 16; TEMP 36.9; O2SAT 95
== END 2023-02-11 09:09 | disposition home or self-care (01) ==
PROVIDERS: Emergency Provider Student in an Organized Health Care Education/Training Program; PCP Internal Medicine
DX: O9A.213 Injury, poisoning and certain other consequences of external causes complicating pregnancy, third trimester (principal); S52.502A Unspecified fracture of the lower end of left radius, initial encounter for closed fracture; W10.9XXA Fall (on) (from) unspecified stairs and steps, initial encounter; S52.612A Displaced fracture of left ulna styloid process, initial encounter for closed fracture
CPT/HCPCS: 29125; 73090; 99284

== ENCOUNTER 2023-02-11 11:16 | Outpatient (CLI) | payer BC, OTHER, SELFPAY ==
[2023-02-11 11:26] VITALS: BP 133/63; PULSE 100; RESP 18; TEMP 37; O2SAT 97
[2023-02-11 11:30] VITALS: BP 133/63; PULSE 100; RESP 18; TEMP 37; O2SAT 97; BMI 44.1
[2023-02-11 11:53] VITALS: BMI 44.1
== END 2023-02-11 13:20 | disposition home or self-care (01) ==
LOC: OBOUT 11:17 → OB 11:18
PROVIDERS: PCP Internal Medicine; Visit Provider Nurse Practitioner Obstetrics & Gynecology
DX: O26.893 Other specified pregnancy related conditions, third trimester (principal); Z3A.28 28 weeks gestation of pregnancy; W19.XXXA Unspecified fall, initial encounter
CPT/HCPCS: G0463

== ENCOUNTER → 2023-02-18 06:48 | Outpatient (CLI) | payer BC, OTHER, SELFPAY ==
--- NOTE | 2023-02-18 06:54 | XR_ITS ---
FINAL REPORT CLINICAL HISTORY: Lt wrist pain COMPARISON: 02/11/2023 FINDINGS: LEFT WRIST 3 views of the left wrist reveal a transverse fracture of the distal radius, with stable alignment since the prior exam of February 11. There is also a fracture of the base of the ulnar styloid process, also stable. A splint is noted overlying the forearm and wrist. IMPRESSION: Transverse fracture distal radius, fracture base of the ulnar styloid process, alignment stable since the prior exam of February 11. Reviewed, Interpreted and Dictated by Yasir Lyles III, MD Transcribed by Sonya Nassar Authenticated and [facility]
[2023-02-18 07:48] LABS: Basophils % 0.4 % (0.1-2.0); Eosinophils # 0.3 K/mm3 (0.0-0.4); Eosinophils % 2.6 % (0.1-12.0); Hematocrit 38.7 % (37.0-47.0); Hemoglobin 13.2 g/dL (12.2-16.2); Lymphocytes # 2.1 K/mm3 (0.7-4.5); Lymphocytes % 21.1 % (10-50); Mean Corpuscular HGB Conc 34.2 g/dL (31.8-35.4); Mean Corpuscular Hemoglobin 32.9 pg (27.0-31.2); Mean Corpuscular Volume 96.3 fl (81-99); Mean Platelet Volume 9.5 fl (7.4-10.4); Monocytes # 0.4 K/mm3 (0.1-1.0); Monocytes % 4.3 % (1.7-9.3); Neutrophils # 7.1 K/mm3 (1.8-7.8); Neutrophils % 71.7 % (37.0-80.0); Platelet Count 202 K/mm3 (142-424); Red Blood Count 4.01 M/mm3 (4.20-5.40); White Blood Count 9.8 K/mm3 (4.8-10.8)
[2023-02-18 07:58] LABS: Glucose,Fasting 85 mg/dl (74-100)
[2023-02-18 08:44] LABS: Glucose 1 Hour 151 mg/dL (74-100)
== END ==
PROVIDERS: PCP Internal Medicine; Visit Provider Nurse Practitioner Obstetrics & Gynecology
DX: S52.502A Unspecified fracture of the lower end of left radius, initial encounter for closed fracture (principal); Z34.93 Encounter for supervision of normal pregnancy, unspecified, third trimester; Z3A.29 29 weeks gestation of pregnancy
CPT/HCPCS: 36415; 73110; 82951; 85025

== ENCOUNTER → 2023-02-20 09:21 | Outpatient (CLI) | payer BC, OTHER, SELFPAY ==
[2023-02-20 10:53] LABS: Glucose,Fasting 88 mg/dl (74-100)
[2023-02-20 11:35] LABS: Glucose 1 Hour 161 mg/dL (74-100)
[2023-02-20 12:40] LABS: Glucose 2 Hour 114 mg/dL (74-100)
[2023-02-20 13:30] LABS: Glucose 3 Hour 135 mg/dL (74-100)
== END ==
PROVIDERS: PCP Internal Medicine; Visit Provider Nurse Practitioner Obstetrics & Gynecology
DX: O99.810 Abnormal glucose complicating pregnancy (principal); Z3A.29 29 weeks gestation of pregnancy
CPT/HCPCS: 36415; 82951

== ENCOUNTER → 2023-03-01 11:44 | Outpatient (CLI) | payer BC, OTHER, SELFPAY ==
--- NOTE | 2023-03-01 11:48 | XR_ITS ---
FINAL REPORT CLINICAL HISTORY: lt wrist fx COMPARISON: 02/18/2023 FINDINGS: LEFT WRIST SERIES Three views of the left wrist were obtained. There is interval placement of a fiberglass cast. The distal radial and ulnar styloid process fractures are again noted. The fracture lines are partially obscured by the cast. No further displacement from prior exam. IMPRESSION: No gross significant change of distal radial and ulnar fractures. Reviewed, Interpreted and Dictated by Tri Fuentes MD Transcribed by Saurabh Christina Authenticated and [facility]
== END ==
PROVIDERS: PCP Internal Medicine; Visit Provider Orthopaedic Surgery
DX: S52.502A Unspecified fracture of the lower end of left radius, initial encounter for closed fracture (principal)
CPT/HCPCS: 73110

== ENCOUNTER 2023-03-16 15:58 | Outpatient (RCR) | payer BC, OTHER, SELFPAY | END 2023-03-16 16:45 | disposition home or self-care (01) | LOC: OT 15:58 | PROVIDERS: Visit Provider Orthopaedic Surgery | DX: S52.502A Unspecified fracture of the lower end of left radius, initial encounter for closed fracture (principal) | CPT/HCPCS: 97763 ==

== ENCOUNTER → 2023-04-07 09:10 | Outpatient (CLI) | payer BC, OTHER, SELFPAY ==
--- NOTE | 2023-04-07 09:13 | US_ITS ---
PROCEDURE: US OB BIOPHYSICAL PROFILE CLINICAL INDICATION: sga COMPARISON: FINDINGS: Transabdominal sonographic images of the uterus were obtained. From her established due date she is 35weeks 6days. The following parameters are obtained: Viable fetus in the cephalic presentation with a posterior placenta grade 3. Average ultrasound age is 34weeks 3days. Estimated due date by ultrasound is 05/16/2023. Estimated weight is 5lb 3.65oz. 12 percentile. heart rate: 128bpm bpm. BPD: 34weeks 6days OFD: 34weeks 6days HC: 34 weeks 2 days AC: 33 weeks 6 days FL: 34 weeks 5 days HC/AC: 1.03 Cephalic index: 0.79 FL/BPD: 0.79 FL/AC: 0.23 Amniotic fluid index: 6.68cm Qualitative AFV: 2 breathing movements: 2 Gross body movements: 2 Tone: 2 Biophysical profile score: 8 No obvious anomalies evident.Kidneys, stomach, bladder, four-chamber heart, three-vessel cord appear normal. IMPRESSION: 1. Viable fetus in the cephalic presentation. 2. Placenta is posterior and significantly calcified, grade 3. 3. The fluid is marginal with an amniotic fluid index of 6.68 cm. 4. Fetus is 12th percentile. 5. The abdominal circumference is currently 2 weeks behind. 6. Fetus is active in there is good breathing movement seen. 7. Biophysical profile 03/16. Dictated by: Vijay Mcmanus MD 04/07/2023 10:46 Vijay Mcmanus MD in [place] 04/07/2023 10:46
== END ==
PROVIDERS: PCP Internal Medicine; Visit Provider Nurse Practitioner Obstetrics & Gynecology
DX: O36.5930 Maternal care for other known or suspected poor fetal growth, third trimester, not applicable or unspecified (principal); Z3A.35 35 weeks gestation of pregnancy
CPT/HCPCS: 76816; 76819

== ENCOUNTER → 2023-04-14 08:47 | Outpatient (CLI) | payer BC, OTHER, SELFPAY ==
--- NOTE | 2023-04-14 08:48 | US_ITS ---
PROCEDURE: US OB BPP W/FET-MAT S/D CLINICAL INDICATION: BPP, GWENDOLYN, SD ratio COMPARISON: FINDINGS: Transabdominal sonographic images of the uterus were obtained. From her established due date she is 36weeks 6days. The following parameters are obtained: Viable fetus in the cephalic presentation with a posterior placenta grade 3. Average ultrasound age is 35weeks 0 days Estimated due date by ultrasound is 05/19/2023. Estimated weight is 5 lb 12 oz, 12/26/1996 15 percentile. heart rate: 138bpm bpm. BPD: 35weeks 3days OFD: 35weeks 3days HC: 34 weeks 4 days AC: 35 weeks 2 days FL: 35 weeks 4 days HC/AC: 0.99 Cephalic index: 0.78 FL/BPD: 0.81 FL/AC: 0.22 Amniotic fluid index: 6.37cm Qualitative AFV: 2 breathing movements: 2 Gross body movements: 2 Tone: 2 Biophysical profile score: 8 Doppler evaluation of the umbilical artery: SD ratio: 2.8 Resistive index: 0.56 No obvious anomalies evident.Kidneys, stomach, bladder, three-vessel cord appear normal. IMPRESSION: 1. Fetus in the cephalic presentation with a posterior placenta grade 3. 2. The fluid is low with an amniotic fluid index of 6.37 cm. It had been 6.8 cm last week. 3. Biophysical profile is 8/8 with good breathing movement seen. 4. SD ratio is normal. Dictated by: Vijay Mcmanus MD 04/14/2023 12:45 Vijay Mcmanus MD in [place] 04/14/2023 12:45
== END ==
PROVIDERS: PCP Internal Medicine; Visit Provider Nurse Practitioner Obstetrics & Gynecology
DX: O36.5930 Maternal care for other known or suspected poor fetal growth, third trimester, not applicable or unspecified (principal); Z34.93 Encounter for supervision of normal pregnancy, unspecified, third trimester; Z3A.36 36 weeks gestation of pregnancy
CPT/HCPCS: 76811; 76819; 76820; 86403

== ENCOUNTER → 2023-04-14 23:16 | Outpatient (CLI) | payer BC, OTHER, SELFPAY | PROVIDERS: PCP Internal Medicine; Visit Provider Nurse Practitioner Obstetrics & Gynecology | DX: Z34.90 Encounter for supervision of normal pregnancy, unspecified, unspecified trimester (principal) ==

== ENCOUNTER 2023-04-15 09:19 | Inpatient (IN) | payer BC, OTHER, SELFPAY ==
[2023-04-15] VITALS (9 sets, daily range): BP systolic 120–133; BP diastolic 53–86; PULSE 55–71; RESP 16–18; TEMP 36.5–37.1; O2SAT 95–99; BMI 41.5
[2023-04-15 10:27] LABS: Basophils % 0.4 % (0.1-2.0); Eosinophils # 0.3 K/mm3 (0.0-0.4); Eosinophils % 2.6 % (0.1-12.0); Hematocrit 43.2 % (37.0-47.0); Lymphocytes # 1.7 K/mm3 (0.7-4.5); Lymphocytes % 18.1 % (10-50); Mean Corpuscular HGB Conc 32.3 g/dL (31.8-35.4); Mean Corpuscular Hemoglobin 30.6 pg (27.0-31.2); Mean Corpuscular Volume 94.6 fl (81-99); Mean Platelet Volume 10.8 fl (7.4-10.4); Monocytes # 0.5 K/mm3 (0.1-1.0); Neutrophils # 6.9 K/mm3 (1.8-7.8); Platelet Count 209 K/mm3 (142-424); Red Blood Count 4.57 M/mm3 (4.20-5.40); White Blood Count 9.4 K/mm3 (4.8-10.8)
[2023-04-15 10:40] LABS: Alanine Aminotransferase 26 U/L (12-78); Albumin Level 3.5 g/dl (3.5-5.0); Alkaline Phosphatase 183 U/L (38-126); Anion Gap 11.9 mEq/L (5-15); Aspartate Amino Transferase 35 U/L (14-36); Bilirubin,Total 0.5 mg/dl (0.2-1.3); Blood Urea Nitrogen 5 mg/dl (7-17); Calcium 8.7 mg/dl (8.4-10.2); Carbon Dioxide 21 mmol/L (22.0-30.0); Chloride 109 mmol/L (98-107); Creatinine Clearance Estimated 106 mL/min (50-200); Estimated Glomerular Filt Rate 120 ml/min (>60); GFR (African American) 145 ML/MIN (>60); Globulin 3.5 g/dL (1.3-3.2); Glucose 83 mg/dl (74-100); Potassium 3.9 mmoL/L (3.5-5.1); Sodium 138 mmol/L (136-145)
[2023-04-15 10:43] LABS: Microscopic, Urine URINE MICROSCOPIC (MICROSCOPIC)
[2023-04-15 10:46] LABS: Bilirubin,Urine Negative (Negative); Blood, Urine Negative (Negative); Color,Urine YELLOW (Yellow); Glucose,Urine (UA) Negative (Negative); Ketones,Urine Negative (Negative); Leukocyte Esterase,Urine 1+ (Negative); Nitrate,Urine Negative (Negative); Protein,Urine Negative (Negative); Specific Gravity, Urine 1.015 (1.005-1.030)
[2023-04-15 10:54] LABS: Appearance,Urine Slightly Cloudy (Clear)
[2023-04-15 10:57] LABS: Squamous Epithelial Cell,Urine TNTC #/hpf (0-5)
[2023-04-15 10:58] LABS: Opiate Screen,Urine Negative ng/ml (<300)
[2023-04-15 10:59] LABS: Phencyclidine Screen,Urine Negative ng/ml (<25)
[2023-04-15 11:01] LABS: Benzodiazepines Screen,Urine Negative ng/ml (<200)
[2023-04-15 11:02] LABS: Amphetamine/Metha Screen,Urine Negative ng/ml (<1000)
[2023-04-15 11:03] LABS: Barbiturates Screen,Urine Negative ng/ml (<200); Cannabinoid Screen,Urine Negative ng/ml (<50)
[2023-04-15 11:04] LABS: Cocaine Screen,Urine Negative ng/ml (<300)
[2023-04-15 11:05] LABS: Methadone Screen,Urine Negative ng/ml (<300)
--- NOTE | 2023-04-15 11:56 | P.PNANES_ITS ---
[facility] Disclaimer: The information contained in this section may have been updated after the patient was seen, as this information can be updated by other users. Medical History Surgical History Hx of section Family History Other No significant family history Social History Smoking Status: Never smoker alcohol intake: never substance use type: denies use current occupational status: employed Travel in the last 8 weeks: None household members: spouse and children housing: house [facility] Anesthesia Checklist Patient Identification Patient Identification: Arm Band and Verbal (Name & ) Structural Data Admitted From: Inpatient Planned Operative Procedure/s: C/S Consent for Planned Operative Procedure(s) Verified: Yes NPO Status Verified Time NPO: 00:00 Chart Verification Results Verified: CBC Additional verifications Patient : Yes Anesthesia Reactions: No Airway Assessment Mallampati Score:: Class II C-Spine Mobility Assessed: Yes TMJ Mobility Assessed: Yes Dentition: Good Dentition Neurological Assessment Level of Consciousness: Awake Hx Seizures: No Numbness or tingling in extremities: No Anesthesia Plan Anesthesia Risk discussed: Yes Anesthesia Plan: Verified ASA Class: III Anesthesia Type: Spinal
--- NOTE | 2023-04-15 11:57 | EXP.OB.APHP ---
OB - H&P: HPI Antepartum History of Present Illness Chief complaint: Scheduled repeat History of present illness: Mrs Daiana Givens is a 27 yo at 37w0d who presents to [facility] for scheduled repeat secondary to oligohydramnios. She has had good care. History of x 2. History of Present Criteria for establishing EDC:: based on LMP only care: good care Ultrasounds: normal mid trimester US Obstetrical complications: none Medical complications: none Labs Blood type: O (+) positive Rubella: immune RPR/VDRL: nonreactive GBS status: unknown HBsAG: negative [facility] Disclaimer: The information contained in this section may have been updated after the patient was seen, as this information can be updated by other users. Medical History (Updated 04/15/23 @ 12:02 by Ting Ball DO) 37 weeks gestation of Maternal obesity affecting , antepartum Surgical History (Updated 04/15/23 @ 12:00 by Ting Ball DO) Hx of section Family History Other No significant family history Social History Smoking Status: Never smoker alcohol intake: never substance use type: denies use current occupational status: employed Travel in the last 8 weeks: None household members: spouse and children housing: house Review of Systems Review of Systems Review of systems:: pertinent systems reviewed and negative unless documented below Meds Home Medications and Allergies Home Medications Medication Instructions Recorded Confirmed Type ferrous sulfate 325 mg (65 mg 325 mg PO DAILY Supplement 02/11/23 04/15/23 History iron) tablet vit no.95-ferrous 1 tab PO DAILY Supplement 04/15/23 04/15/23 History fumarate 28 mg-folic acid 800 mcg tablet () New Prescriptions to Start Prescriptions: Allergies Allergy/AdvReac Type Severity Reaction Status Date / Time No Known Allergies Allergy Verified 04/14/23 09:32 OB - H&P: Exam Physical Exam Vital signs: Pulse Resp BP Pulse Ox O2 Del Method 71 16 123/81 97 Room Air 04/15/23 10:31 04/15/23 10:31 04/15/23 10:31 04/15/23 10:31 04/15/23 10:31 Constitutional no acute distress Routine HEENT Exam Head: Present normocephalic and atraumatic Eye: Absent conjunctivae pink ENT: Present mucous membranes moist and dentition normal Routine Neck Exam Present full ROM Routine Respiratory Exam Present CTA bilaterally and normal respiratory effort Routine Cardiovascular Exam Present RRR Routine Abdominal Exam Present soft (Gravid); Absent tenderness Routine Rectal Exam Patient deferred: visual exam Routine Exam External: Present normal urethra appearance; Absent erythema, tenderness, lesions or lacerations Routine Extremities Exam Present full ROM; Absent edema or calf tenderness Routine Neurological Exam Present alert, oriented X3 and moving all extremities Routine Psychiatric Exam Present normal affect and cooperative OB - Results Labs Labs: Short CBC 04/15/23 Range/Units 10:12 WBC 9.4 (4.8-10.8) K/mm3 Hgb 14.0 (12.2-16.2) g/dL Hct 43.2 (37.0-47.0) % Plt Count 209 (142-424) K/mm3 BMP 04/15/23 10:12 Sodium 138 Potassium 3.9 Chloride 109 H Carbon Dioxide 21 L BUN 5 L Creatinine 0.60 Glucose 83 Calcium 8.7 Liver Function 04/15/23 Range/Units 10:12 Total Bilirubin 0.5 (0.2-1.3) mg/dl AST 35 (14-36) U/L ALT 26 (12-78) U/L Alkaline Phosphatase 183 H (38-126) U/L Albumin 3.5 (3.5-5.0) g/dl Urine 04/15/23 Range/Units 10:38 Urine Color Yellow (Yellow) Urine Appearance Slightly cloudy (Clear) Urine pH 7.0 (5.0-8.5) Ur Specific [place] 1.015 (1.005-1.030) Urine Protein Negative (Negative) Urine Glucose (UA) Negative
--- NOTE | 2023-04-15 13:42 | EXP.OP.NOTE ---
Date of procedure: 04/15/23 Pre-op Diagnosis:: 1. IUP at 37w0d 2. Oligohydramnios 3. Maternal obesity 4. Hx of x 2 Post-op Diagnosis:: 1. IUP at 37w0d 2. Oligohydramnios 3. Maternal obesity 4. Hx of x 2 Procedure performed:: Repeat Low Transverse Section Surgeon:: Ting Ball DO Flight Readiness Technician(s):: Nasrin Torres DO CLAY WASHER:: Johan Paul Anesthesia: spinal Estimated blood loss (mL): 600 Clinical Note:: Mrs Daiana Givens is a 27 yo at 37w0d who presents to [facility] for scheduled repeat secondary to oligohydramnios. She has had good care. History of x 2. Operative findings:: 1. Live female baby, Holt, weighing 6 lb 2 oz, APGARs 9, 9 2. Occiput posterior presentation 3. Grossly normal appearing uterus, bilateral fallopian tubes and ovaries Operative note:: The risks, benefits and alternatives of the procedure were reviewed with the patient. Informed consent was obtained. Patient was taken to the operating room spinal anesthesia was placed. The patient received 2 grams of Ancef preoperatively. Patient was placed in dorsal supine position with a leftward tilt. SCDs in place. Lane catheter was inserted and draining clear urine prior to the start of the procedure. heart tones were obtained. Patient was then prepped and draped in normal sterile fashion. Allis clamp test was performed to ensure adequate anesthesia. A Pfannenstiel skin incision was made 2 cm above pubic symphysis, just above prior Pfannenstiel scar. This was carried through to underlying layer of fascia. Fascia was incised in midline, extended laterally with Burgos scissors. Superior aspect of fascial incision was grasped with two Cynthia clamps, elevated up, and rectus muscle dissected off bluntly and sharply with Burgos scissors. The retcus muscle was then in the midline and the peritoneum was entered bluntly with a digit. Peritoneal incision was then extended superiorly and inferiorly with good visualization of the bladder. Adiel retractor was inserted. The lower uterine segment was incised in a transverse fashion. Clear amniotic fluid was noted. Head was delivered without difficulty. Remainder of body was delivered without difficulty. Mouth and nares were bulb suctioned. Spontaneous cry was noted. Delayed cord clamping was performed for 60 seconds. The umbilical cord was clamped and cut. The infant was handed to awaiting pediatric staff in stable condition. Dr. Ragsdale was present. Apgars were 9(1 min), 9(5 min). Cord blood was obtained. Gentle traction on the umbilical cord and uterine fundal massage delivered the placenta. Placenta was intact. Uterus was cleared of all clots and debris with a moist laparotomy sponge. Corners of the uterine incision were grasped with Allis clamps. The uterine incision was reapproximated with # 1 Vicryl suture in a running, locked stitch. Second layer of the same stitch was used to imbricate the incision. Small amount of oozing noted at lateral aspect of close uterine incision. Ysabel and gel foam was applied over uterine incision. Hemostasis was noted. Posterior cul-de-sac was cleaned with moist laparotomy sponge. Gutters cleared of all clots and debris with a moist laparotomy sponge. Reinspection of the lower uterine segment demonstrated small amount of oozing. Ysabel was applied over uterine incision. Hemostasis was noted. At this point all instruments and sponges were removed from the pelvis.? The peritoneum was grasped with Pat clamps x 3. The peritoneum was reapproximated with 0 Vicryl suture in a running stitch. The corners of the fascia were grasped with Cynthia clamps, and the fascia was reapproximated with two # 1 Vicryl suture overlapped to the right of midline. The subcutaneous tissue was reapproximated with 3-0 Vicryl. Subcutaneous tissue was irrigated with clear return of fluids. The skin was reapproximated with Insorb katrina. Steri strips and Telfa was placed over close
--- NOTE | 2023-04-15 13:53 | P.PNANES_ITS ---
[facility] Anesthesia Record Part I Anesthesia Record I Intake, IV Amount: 1,000 Hydration: Adequate Estimated blood loss (mL): 600 Urine output (mL): 650 Blood Pressure: 132/72 SaO2: 98 Pulse Rate: 64 Airway Patency: Patent Respiratory Rate: 18 Temperature: 98.1 F Patient is:: Awake Stable to PACU at:: 13:54
[2023-04-15 14:46] LABS: Microscopic,Cath URINE MICROSCOPIC (MICROSCOPIC)
[2023-04-15 14:48] LABS: Appearance,Urine/Cath CLEAR (Clear); Bilirubin,Cath Negative (Negative); Blood, Urine/Cath Negative (Negative); Color,Urine/Cath YELLOW (Yellow); Glucose,Urine/Cath (UA) Negative (Negative); Ketones,Urine/Cath Negative (Negative); Leukocyte Esterase,Cath Negative (Negative); Nitrate,Cath Negative (Negative); PH,Urine/Cath 7.5 (5.0-8.5); Protein,Urine/Cath Negative (Negative); Specific Gravity, Urine/Cath 1.015 (1.005-1.030); Urobilinogen,Cath 0.2 EU/dl (0.2)
[2023-04-15 14:59] LABS: WBC,Urine/Cath Occasional #/hpf (0-3)
[2023-04-16] VITALS (8 sets, daily range): BP systolic 110–133; BP diastolic 65–80; PULSE 57–66; RESP 17–18; TEMP 36.5–37; O2SAT 97–99
--- NOTE | 2023-04-16 07:05 | EXP.ANES.II ---
[facility] Anesthesia Record Part II Anesthesia Record Part II Discharge Time: 14:30 Destination: Obstetric PACU nurse assessment reviewed?: Yes Patient Condition:: Good Anesthesia Complications:: None Swallowing reflex intact?: Yes Airway Patency: Patent Cyanosis?: No Blood Pressure: 133/80 SaO2: 99 Respiratory Rate: 18 Pulse Rate: 57 Temperature: 97.7 F Mental Status: Alert & Oriented Pain level:: 0 Nausea and/or vomitting:: None Intake, IV Amount: 0 Hydration: Adequate
--- NOTE | 2023-04-16 08:00 | PC.NURSE ---
per Dr Ball hold lovenox and give q12 hours
[2023-04-16 08:28] LABS: Basophils % 0.1 % (0.1-2.0); Eosinophils # 0.4 K/mm3 (0.0-0.4); Lymphocytes # 1.2 K/mm3 (0.7-4.5); Lymphocytes % 10.2 % (10-50); Mean Corpuscular Volume 96.9 fl (81-99); Monocytes # 0.4 K/mm3 (0.1-1.0)
[2023-04-16 08:38] LABS: Eosinophils % 3.3 % (0.1-12.0); Hematocrit 39.4 % (37.0-47.0); Hemoglobin 12.7 g/dL (12.2-16.2); Mean Corpuscular HGB Conc 32.1 g/dL (31.8-35.4); Mean Corpuscular Hemoglobin 31.1 pg (27.0-31.2); Mean Platelet Volume 10.3 fl (7.4-10.4); Monocytes % 3.4 % (1.7-9.3); Neutrophils # 9.7 K/mm3 (1.8-7.8); Neutrophils % 82.9 % (37.0-80.0); Platelet Count 173 K/mm3 (142-424); Red Blood Count 4.07 M/mm3 (4.20-5.40); Red Cell Distribution Width 13.2 % (11.5-17.5); White Blood Count 11.7 K/mm3 (4.8-10.8)
--- NOTE | 2023-04-16 12:58 | EXP.ACUTE.PN ---
Subjective *Date: 04/16/23 *Time: 12:58 Interval history: POD # 1 s/p RLTCS Daiana is resting comfortably this morning. Pain is controlled. Appropriate lochia. She is formula feeding. Voiding without difficulty and passing flatus. Tolerating regular diet. Denies fever/chills, chest pain and shortness of breath. No dizziness or lightheadedness. Denies swelling. Medical Exam Vital signs and Labs for Last 24 Hours: Vital Signs Temp Pulse Pulse Resp BP BP Pulse Ox 04/16/23 08:00 98.3 F 66 18 120/72 99 04/16/23 03:54 98.1 F 63 17 110/72 04/16/23 00:31 98.3 F 63 17 111/78 98 04/15/23 19:50 98.8 F 65 18 127/86 97 04/15/23 17:05 58 L 16 127/82 98 04/15/23 14:38 98.1 F 67 16 128/53 L 99 04/15/23 14:30 56 L 18 133/80 99 04/15/23 14:24 55 L 18 120/80 97 04/15/23 14:14 56 L 18 126/78 95 04/15/23 14:04 55 L 18 124/81 98 04/15/23 13:54 97.7 F 61 18 132/72 97 04/16/23 07:06 18 04/15/23 13:54 98.1 F 64 18 132/72 O2 Del Method 04/16/23 08:00 Room Air 04/16/23 03:54 04/16/23 00:31 Room Air 04/15/23 19:50 Room Air 04/15/23 17:05 04/15/23 14:38 Room Air 04/15/23 14:30 Room Air 04/15/23 14:24 Room Air 04/15/23 14:14 Room Air 04/15/23 14:04 Room Air 04/15/23 13:54 Room Air 04/16/23 07:06 04/15/23 13:54 Intake and Output 04/15/23 04/16/23 04/16/23 23:59 07:59 15:59 Intake Total 0 / 0 Output Total 300 / 300 Balance -300 / 700 0 / 0 Intake: Intake, Total IV Amount 0 / 0 Output: Output, Other Amount 300 / 300 Laboratory Results - last 24 hr 04/15/23 12:30: Urine Color Yellow, Urine Appearance Clear, Urine pH 7.5, Ur Specific [place] 1.015, Urine Protein Negative, Urine Glucose (UA) Negative, Urine Ketones Negative, Urine Blood Negative, Urine Nitrate Negative, Urine Bilirubin Negative, Urine Urobilinogen 0.2, Ur Leukocyte Esterase Negative, Urine RBC None, Urine WBC Occasional, Ur Squamous Epith Cells 3-5, Urine Bacteria None 04/16/23 08:20: WBC 11.7 H, RBC 4.07 L, Hgb 12.7, Hct 39.4, MCV 96.9, MCH 31.1, MCHC 32.1, RDW 13.2, Plt Count 173, MPV 10.3, Neut % (Auto) 82.9 H, Lymph % (Auto) 10.2, [place] % (Auto) 3.4, Eos % (Auto) 3.3, Baso % (Auto) 0.1, Neut # (Auto) 9.7 H, Lymph # (Auto) 1.2, [place] # (Auto) 0.4, Eos # (Auto) 0.4, Baso # (Auto) 0.0 I & O for Labs for Last 24 Hours: Intake & Output 04/13/23 04/14/23 04/15/23 04/16/23 23:59 23:59 23:59 23:59 Intake Total 1000 / 1000 0 / 0 Output Total 300 / 300 Balance 700 / 700 0 / 0 Weight 220 lb Microbiology Reports for the Last 24 Hours: Microbiology 04/15/23 10:38 Urine,Clean Catch Urine Culture - Preliminary NO GROWTH AFTER 24 HOURS Head: Present atraumatic and normocephalic ENT: Present mucous membranes moist Neck: Present full ROM Respiratory: Present CTA bilaterally and normal respiratory effort Cardiac: Present Reg Rate and Rhythm GI: Present soft; Absent distention or tenderness Comments:: Uterine fundus firm, below umbilicus; Pfannenstiel incision clean/dry/intact with steri strips present Rectal (female): Present deferred (female): Present deferred Extremities: Present full ROM Neuro: Present alert, awake, oriented x 3 and moves all extremities Assessment and Plan *Assessment and plan (1) 37 weeks gestation of : Status: Acute Category: Medical Code(s): Z3A.37 - 37 weeks gestation of (2) Maternal obesity affecting , antepartum: Status: Acute Qualifiers: Obesity type affecting : unspecified obesity Qualified Code(s): O99.210 - Obesity complicating , unspecified trimester Category: Medical Code(s): O99.210 - Obesity complicating , unspecified trimester (3) Oligohydramnios: Status: Acute Qualifiers: Fetus number: single or unspecified fetus Trimester:
[2023-04-17 05:12] VITALS: BP 122/83; PULSE 67; RESP 17; TEMP 36.7; O2SAT 97
[2023-04-17 08:00] VITALS: BP 127/77; PULSE 56; RESP 18; TEMP 36.8; O2SAT 100
--- NOTE | 2023-04-17 10:50 | EXP.DC.SUM ---
General Admission date:: 04/15/23 Discharge date: 04/17/23 HPI HPI HPI: POD # 2 s/p RLTCS Daiana is sitting comfortably at bedside. Pain controlled. Light lochia. Formula feeding. Voiding without difficulty and passing flatus. Toleraitng regular diet. Ambulating well ad jessica. Denies headaches, vision changes, RUQ pain. No lightheadedness/dizziness. Admits to some lower extremity swelling. No calf pain. Hospital Course Hospital Course Hospital Course: Mrs Daiana Givens is a 27 yo at 37w0d who presents to [facility] for scheduled repeat secondary to oligohydramnios. She has had good care. History of x 2. She underwent repeat on 04/15/23. She delivered a live female baby, Marycarmen, weighing 6 lb 2 oz. APGARs 9, 9. EBL 600 mL. She did well postoperatively. Pain controlled. Formula feeding. Voiding without difficulty and passing flatus. Tolerating regular diet. Ambulating well ad jessica. Vital signs stable, afebrile. Heart regular rate and rhythm. Lungs clear to auscultation. Abdomen soft, nontender. Incision clean/dry/intact. She had +1 bilateral lower extremity edema. No calf tenderness. Normal hospital course. She was discharged home on POD # 2. Exam Data for Last 24 hours Vital signs and Labs for Last 24 Hours: Temp Pulse Resp BP Pulse Ox O2 Del Method 98.3 F 56 L 18 127/77 100 Room Air 04/17/23 08:00 04/17/23 08:00 04/17/23 08:00 04/17/23 08:00 04/17/23 08:00 04/17/23 08:00 I & O for Last 24 hours: Intake & Output 04/14/23 04/15/23 04/16/23 04/17/23 23:59 23:59 23:59 23:59 Intake Total 1000 / 1000 0 / 0 Output Total 300 / 300 Balance 700 / 700 0 / 0 Weight 220 lb Microbiology Reports for the Last 24 Hours: Microbiology 04/15/23 10:38 Urine,Clean Catch Urine Culture - Preliminary Constitutional Constitutional: no acute distress and cooperative *Routine HEENT Exam Head: Present normocephalic and atraumatic Eye: Absent conjunctivae pink ENT: Present mucous membranes moist and dentition normal *Routine Neck Exam Neck: Present full ROM *Routine Respiratory Exam Respiratory: Present CTA bilaterally and normal respiratory effort *Routine Cardiovascular Exam Cardiovascular: Present RRR *Routine Abdominal Exam Abdominal: Present soft and normoactive bowel sounds; Absent tenderness or distended Comments: Pfannenstiel incision clean/dry/intact with steri strips *Routine Rectal Exam Patient deferred: visual exam *Routine Exam Patient deferred: external exam *Routine Extremities Exam Extremities: Present edema (+1 bilateral lower extremity swelling) and full ROM; Absent calf tenderness *Routine Neurological Exam Neurological: Present alert, oriented X3 and moving all extremities Routine Psychiatric Exam Psychiatric: Present normal affect and cooperative Results Data Completed and Pending Labs on day of discharge: Preliminary micro results at discharge 04/15/23 10:38 Urine Culture - Preliminary Urine,Clean Catch DS: Diagnosis Discharge Diagnosis (1) 37 weeks gestation of : Status: Acute Code(s): Z3A.37 - 37 weeks gestation of (2) Maternal obesity affecting , antepartum: Status: Acute Code(s): O99.210 - Obesity complicating , unspecified trimester Qualifiers: Obesity type affecting : unspecified obesity Qualified Code(s): O99.210 - Obesity complicating , unspecified trimester (3) Oligohydramnios: Status: Acute Code(s): O41.00X0 - Oligohydramnios, unspecified trimester, not applicable or unspecified Qualifiers: Fetus number: single or unspecified fetus Trimester: third trimester Qualified Code(s): O41.03X0 - Oligohydramnios, third trimester, not applicable or unspecified (4) Hx of section: Status: Acute Code(s): Z98.891 - History of uterine scar from previous surgery (5) S/P
== END 2023-04-17 12:54 | disposition home or self-care (01) | DRG 787 ==
PROVIDERS: Obstetrics & Gynecology; Admitting Provider Obstetrics & Gynecology; PCP Internal Medicine; Visit Provider Obstetrics & Gynecology
PROC: (CPT 59514; principal; 2023-04-15 12:00)
DX: O34.211 Maternal care for low transverse scar from previous cesarean delivery (principal); O41.03X0 Oligohydramnios, third trimester, not applicable or unspecified; Z37.0 Single live birth; Z3A.37 37 weeks gestation of pregnancy; O99.214 Obesity complicating childbirth; O32.8XX0 Maternal care for other malpresentation of fetus, not applicable or unspecified
CPT/HCPCS: 59514; 36415; 59025; 80053; 80305; 81001; 85025; 86850; 87086; 94761; C9290; G0283; J0690; J2405

== ENCOUNTER → 2023-04-29 12:40 | Outpatient (CLI) | payer BC, OTHER, SELFPAY ==
--- NOTE | 2023-04-29 12:49 | XR_ITS ---
FINAL REPORT CLINICAL HISTORY: Lt Wrist Pain COMPARISON: 03/01/2023 FINDINGS: LEFT WRIST Four views were obtained. Overlying cast material has been removed. There is mild healed fracture deformity of the distal radius. The ulnar styloid remains ununited. The visualized joint spaces are normally aligned. The soft tissues are unremarkable. IMPRESSION: Healed distal radius fracture deformity. Ulnar styloid remains ununited. Reviewed, Interpreted and Dictated by Tristan Osuna MD Transcribed by Evelyn Denton Authenticated and [facility]
== END ==
PROVIDERS: PCP Internal Medicine; Visit Provider Orthopaedic Surgery
DX: Y99.9 Unspecified external cause status; S52.502D Unspecified fracture of the lower end of left radius, subsequent encounter for closed fracture with routine healing
CPT/HCPCS: 73110

== ENCOUNTER 2023-05-11 13:11 | Emergency (ER) | payer BC, OTHER, SELFPAY ==
--- NOTE | 2023-05-11 13:15 | XR_ITS ---
FINAL REPORT CLINICAL HISTORY: pain FINDINGS: Left ankle Three views were obtained. There is no acute fracture or dislocation. The joint spaces appear normal. There is chronic calcification inferior to the lateral malleolus. IMPRESSION: No acute process. Reviewed, Interpreted and Dictated by Yasir Lyles III, MD Transcribed by Arleen Mckee Authenticated and [facility]
--- NOTE | 2023-05-11 13:15 | XR_ITS ---
FINAL REPORT CLINICAL HISTORY: pain, stepped on piece of metal fence Wednesday (05/09/23) FINDINGS: Left foot Three views were obtained. There is no acute fracture or dislocation. The joint spaces appear normal. No soft tissue abnormality is identified. No foreign body is identified. IMPRESSION: No acute process. Reviewed, Interpreted and Dictated by Yasir Lyles III, MD Transcribed by Arleen Mckee Authenticated and [facility]
[2023-05-11 13:25] VITALS: BP 138/81; PULSE 84; RESP 18; TEMP 36.9; O2SAT 98; BMI 40.6
--- NOTE | 2023-05-11 13:40 | EXP.UTC ---
Discharge Plan Disposition Patient Disposition: Home, Self-Care Condition: Good Prescriptions Prescriptions: New mupirocin 2 % ointment 1 applic topical TID 7 Days Qty: 15 0RF amoxicillin-pot clavulanate 875-125 mg Tablet 1 tab PO Q12H Qty: 20 0RF methylprednisolone 4 mg Tablets,Dose Pack 4 mg PO DIRECTED Qty: 21 0RF No Action clotrimazole 1 % ointment 1 applic topical BID 14 Days Qty: 56.7 0RF Referrals Follow up/Referrals: Jann Owens MD [Primary Care Provider] - See instructions Activity Restrictions/Add. Instructions Additional Instructions/Restrictions: Keep the wound clean and dry. Watch the wound for signs of infection, such as redness, swelling, drainage, fever. etc. Take tylenol or ibuprofen for pain. Follow up with your regular doctor. GO TO THE ER FOR ANY WORSENING SYMPTOMS OR CONCERNS. Clinical Impressions Clinical Impression: Puncture wound of foot, right, Sinusitis Stand Alone Forms Stand Alone Forms: Work/School Release Instructions Patient Instructions: Tetanus, Diphtheria, and Pertussis Vaccine, DI for Puncture Wound, Mupirocin Discharge ED Provider: Magnus Dyer [facility] [place] General Stated complaint: AO [id number] left foot injury, head congestion Time Seen by Provider: 05/11/23 13:40 History of Present Illness Provider Complaint: She states that 3 days ago she stepped on a piece of sharp wire fencing. She has a puncture wound on the bottom of her right foot. Her tetanus immunization is not up to date. Related Data Previous Rx's Medication Instructions Recorded clotrimazole 1 % topical ointment 1 applic topical BID 2 weeks #56.7 04/29/23 grams amoxicillin 875 mg-potassium 1 tab PO Q12H #20 tabs 05/11/23 clavulanate 125 mg tablet methylprednisolone 4 mg tablets in 4 mg PO DIRECTED #21 tabs 05/11/23 a dose pack mupirocin 2 % topical ointment 1 applic topical TID 7 days #15 05/11/23 grams Allergies Allergy/AdvReac Type Severity Reaction Status Date / Time No Known Allergies Allergy Verified 05/11/23 13:48 [facility] Disclaimer: The information contained in this section may have been updated after the patient was seen, as this information can be updated by other users. Medical History (Updated 05/11/23 @ 14:11 by Magnus Dyer APRN) Intertrigo No significant past medical history Surgical History Hx of section S/P Family History Other No significant family history Social History Smoking Status: Never smoker alcohol intake: never substance use type: denies use current occupational status: employed Travel in the last 8 weeks: None household members: spouse and children housing: house ROS Obtained: Yes All systems reviewed & no additional complaints except as documented Constitutional Constitutional: Denies chills and Denies fever(s) Eyes Eyes: Denies eye discharge ENT Ears, Nose, Mouth, and Throat: Denies dizziness, Denies otalgia and Denies sore throat Cardiovascular Cardiovascular: Denies chest pain Respiratory Respiratory: Denies shortness of breath, Denies chest congestion, Denies cough, Denies stridor and Denies wheezing Gastrointestinal Gastrointestingal: Denies nausea or vomiting Musculoskeletal Musculoskeletal: Reports system reviewed and no additional complaints, except as documented and Denies arthralgias Integumentary/Breasts Skin/Breast: Reports as per HPI Neurologic Neurologic: Denies dizziness and Denies paresthesias Allergic/Immunologic Allergic/Immunologic: Denies wheezing Physical Exam General General appearance: alert and in no apparent distress Head Head exam: atraumatic, normocephalic and normal inspection Eye Eye exam: Present normal appearance, PERRL and EOMI ENT ENT exam: Present normal exam
[2023-05-11 14:29] VITALS: BP 138/81; PULSE 84; RESP 18; TEMP 36.9; O2SAT 98
== END 2023-05-11 14:29 | disposition home or self-care (01) ==
PROVIDERS: Emergency Provider Nurse Practitioner Family; PCP Internal Medicine
DX: J01.90 Acute sinusitis, unspecified; W45.8XXA Other foreign body or object entering through skin, initial encounter; S91.339A Puncture wound without foreign body, unspecified foot, initial encounter
CPT/HCPCS: 73610; 73630; 90715; 96372; 99204; 99212; G0463

== ENCOUNTER → 2023-05-27 08:12 | Outpatient (CLI) | payer BC, OTHER, SELFPAY ==
--- NOTE | 2023-05-27 08:22 | XR_ITS ---
FINAL REPORT CLINICAL HISTORY: left wrist pain COMPARISON: 04/29/2023 FINDINGS: LEFT WRIST Three views demonstrate subacute fracture of the distal radius, stable. There is also nonunion of a ulnar styloid fracture. The visualized joint spaces are normally aligned. The soft tissues are unremarkable. IMPRESSION: Subacute fracture of the distal radius, stable since the prior films of April 29. Reviewed, Interpreted and Dictated by Yasir Lyles III, MD Transcribed by Sonya Nassar Authenticated and . [facility]
== END ==
PROVIDERS: PCP Internal Medicine; Visit Provider Orthopaedic Surgery
DX: S62.102A Fracture of unspecified carpal bone, left wrist, initial encounter for closed fracture (principal)
CPT/HCPCS: 73110

== ENCOUNTER 2023-12-01 10:29 | Outpatient (CLI) | payer OTHER, SELFPAY ==
--- NOTE | 2023-12-01 10:32 | XR_ITS ---
FINAL REPORT CLINICAL HISTORY: Foot pain, stepped on horse fence, pain started in August COMPARISON: 05/11/2023 FINDINGS: LEFT FOOT Three views of the left foot demonstrate no acute fracture or dislocation. The visualized joint spaces are normally aligned. The soft tissues are unremarkable. IMPRESSION: No acute bony abnormality. Reviewed, Interpreted and Dictated by Tristan Osuna MD Transcribed by Evelyn Denton Authenticated and [facility]
== END 2023-12-01 23:59 | disposition home or self-care (01) ==
LOC: RAD 10:30
PROVIDERS: PCP Internal Medicine; Visit Provider Podiatrist
DX: M79.672 Pain in left foot (principal); S90.852A Superficial foreign body, left foot, initial encounter
CPT/HCPCS: 73630

== ENCOUNTER 2023-12-08 09:50 | Outpatient (CLI) | payer OTHER, SELFPAY ==
--- NOTE | 2023-12-08 09:52 | US_ITS ---
FINAL REPORT CLINICAL HISTORY: PT STEPPED ON PIECE OF FENCING IN 05/31-- NOW HAS REDDENED SWOLLEN AREA-- R/O FB COMPARISON: None FINDINGS: Limited sonographic images were obtained of the area of palpable abnormality and pain within the left foot. There is a superficial complex fluid collection measuring up to 7 mm within the area of interest. This is 2 mm deep to the skin surface. Associated linear hyperechoic structure measures 3 mm in length, suspicious for foreign body. IMPRESSION: Probable 3 mm linear foreign body in the region of interest with adjacent 7 mm fluid collection, possible abscess. Reviewed, Interpreted and Dictated by Tri Fuentes MD Transcribed by Evelyn Denton Authenticated and [facility]
== END 2023-12-08 23:59 | disposition home or self-care (01) ==
LOC: RAD 09:50
PROVIDERS: PCP Internal Medicine; Visit Provider Podiatrist
DX: M79.672 Pain in left foot (principal); S91.332S Puncture wound without foreign body, left foot, sequela
CPT/HCPCS: 76882

== ENCOUNTER 2023-12-13 12:09 | Outpatient (CLI) | payer OTHER, SELFPAY | END 2023-12-13 23:59 | disposition home or self-care (01) | LOC: LAB.DROPOF 12-14 12:10 | PROVIDERS: PCP Podiatrist; Visit Provider Podiatrist | DX: M79.672 Pain in left foot (principal); L02.612 Cutaneous abscess of left foot; S91.332A Puncture wound without foreign body, left foot, initial encounter; S90.852A Superficial foreign body, left foot, initial encounter | CPT/HCPCS: 87070; 87077; 87205 ==

== ENCOUNTER 2024-04-19 09:43 | Emergency (ER) | payer OTHER, SELFPAY ==
[2024-04-19 09:57] VITALS: BP 121/84; PULSE 76; RESP 20; TEMP 36.9; O2SAT 98; BMI 39.4
--- NOTE | 2024-04-19 10:08 | EXP.UTC ---
Discharge Plan Disposition Patient Disposition: Home, Self-Care Condition: Good Prescriptions Prescriptions: New azithromycin [Zithromax] 250 mg tablet 250 mg PO UD DOSE PK Qty: 6 0RF Rx Instructions: Take two (2) tablets today, then one (1) tablet days #2 thru #5 methylprednisolone 4 mg Tablets,Dose Pack 4 mg PO DIRECTED 6 Days Qty: 21 0RF Rx Instructions: Take 1 pack as directed for 6 days wmszdviedjknqfs-xipmohcqk-HA [Bromfed DM] 2-30-10 mg/5 mL Syrup 5 ml PO Q6H PRN (Reason: Cough) Qty: 240 0RF No Action Mirena 21 mcg/24 hours (8 yrs) 52 mg intrauterine device 1 device intrauterine ONCE Referrals Follow up/Referrals: Jann Owens MD [Primary Care Provider] - See instructions Activity Restrictions/Add. Instructions Additional Instructions/Restrictions: Drink plenty of fluids. Take tylenol or ibuprofen for pain or fever. Take the medications as directed. Follow up with your regular doctor. GO TO THE ER FOR ANY WORSENING SYMPTOMS Clinical Impressions Clinical Impression: Sinusitis, Bronchitis Instructions Patient Instructions: Sinusitis, DI for Sinusitis, DI for Acute Bronchitis Print Language Print Language: Kazakh Discharge ED Provider: Magnus Dyer [facility] [place] General Stated complaint: cough, sinus congestion, chest congestion Mode of Arrival: Ambulatory Source of Information: Patient Time Seen by Provider: 04/19/24 10:07 Description of Symptoms (Recalled from Triage Doc. by RN): CONGESTION, MIGRAINE HEENT Symptoms (Recalled from RN notes): Yes (CONGESTION, MIGRAIN) Resp Symptoms (Recalled from RN notes): No Skin Symptoms (Recalled from RN notes): No MS Symptoms (Recalled from RN notes): No Functional Status (Recalled from RN notes): wdl Related Data Home Medications ?Medication ?Instructions ?Recorded ?Confirmed levonorgestrel 21 mcg/24 hr (up to 1 device intrauterine ONCE 05/27/23 04/19/24 8 years) 52 mg intrauterine device (Mirena) Previous Rx's ?Medication ?Instructions ?Recorded azithromycin 250 mg tablet 250 mg PO UD DOSE PK #6 tabs 04/19/24 (Zithromax) voighbmmzdlipkj-uihwzuftyaitwny-XF 5 ml PO Q6H PRN Cough #240 mL 04/19/24 2 mg-30 mg-10 mg/5 mL oral syrup (Bromfed DM) methylprednisolone 4 mg tablets in 4 mg PO DIRECTED 6 days #21 tabs 04/19/24 a dose pack Allergies Allergy/AdvReac Type Severity Reaction Status Date / Time No Known Allergies Allergy Verified 02/02/24 16:04 Worker's Comp Is this a Worker's Comp case?: No PFSH [facility] Disclaimer: The information contained in this section may have been updated after the patient was seen, as this information can be updated by other users. Medical History [facility] Surgical History S/P Hx of section Family History Other Alcoholism Anemia Asthma Diabetes Hypertension Social History Smoking Status: Never smoker alcohol intake: never substance use type: denies use current occupational status: employed Travel in the last 8 weeks: None household members: spouse and children housing: house ROS Obtained: Yes All systems reviewed & no additional complaints except as documented Constitutional Constitutional: Denies chills and Denies fever(s) Eyes Eyes: Denies eye discharge ENT Ears, Nose, Mouth, and Throat: Denies dizziness, Denies otalgia and Denies sore throat Cardiovascular Cardiovascular: Denies chest pain Respiratory Respiratory: Denies shortness of breath, Denies chest congestion, Denies cough, Denies stridor and Denies wheezing Gastrointestinal Gastrointestingal: Denies nausea or vomiting Musculoskeletal Musculoskeletal: Reports system reviewed and no additional complaints, except as documented and Denies arthralgias Integumentary/Breasts Skin/Breast: Denies rash Neurologic Neurologic: Denies dizziness and Denies paresthesias Allergic/Immunologic Allergic/Immunologic: Denies wheezing Physical Exam General General appearance: alert and in no apparent distress Head Head exam: atraumatic, normocephalic and normal inspection Eye Eye exam: Present normal appearance, PERRL and EOMI ENT ENT exam: Present normal exam, normal oropharynx, mucous membranes moist, TM's normal bilaterally and normal external ear exam Neck Neck exam: Present normal inspection, full ROM and trachea midline; Absent meningismus or lymphadenopathy Chest Chest inspection: Present normal inspection and symmetric chest wall rise; Absent tenderness Respiratory Respiratory exam: Present normal lung sounds bilaterally; Absent respiratory distress Cardiovascular Cardiovascular exam: Present regular rate and normal rhythm; Absent JVD Abdominal Exam Abdominal exam: Present soft and normal bowel sounds; Absent distention, tenderness or guarding Extremities Exam Extremities exam: Present normal inspection, full ROM and normal capillary refill; Absent calf tenderness Back Exam Back exam: Present normal inspection; Absent tenderness Neurological Exam Neurological exam: Present alert and oriented X3 Psychiatric Psychiatric exam: Present normal affect and normal mood Skin Skin exam: Present warm, dry, intact and normal color Lymphatic Lymphatic Findings: no adenopathy Medical Decision Making Medical Records Medical records reviewed: No I reviewed the patient's medical records. Miguel Inquiry Pt receiving controlled substance: No Vital Signs: 04/19/24 09:57 Temperature 98.5 F Temperature Source Oral Pulse Rate [Left Brachial] 76 Respiratory Rate 20 Blood Pressure [Left Arm] 121/84 Blood Pressure Mean [Left Arm] 96 02 Sat by Pulse Oximetry 98 Oxygen Delivery Method Room Air Lab Data Lab results reviewed: Yes I reviewed the patient's lab results.
[2024-04-19 10:37] VITALS: BP 121/84; PULSE 76; RESP 20; TEMP 36.9; O2SAT 98
== END 2024-04-19 10:39 | disposition home or self-care (01) ==
PROVIDERS: Emergency Provider Nurse Practitioner Family; PCP Internal Medicine
DX: J20.9 Acute bronchitis, unspecified (principal); J01.90 Acute sinusitis, unspecified; R51.9 Headache, unspecified; R05.9 Cough, unspecified; R09.89 Other specified symptoms and signs involving the circulatory and respiratory systems
CPT/HCPCS: 99212; 99214; G0463

== ENCOUNTER 2025-02-02 07:57 | Outpatient (CLI) | payer BC, SELFPAY ==
[2025-02-02 08:39] LABS: Albumin Level 4.5 g/dl (3.5-5.0); Chloride 103 mmol/L (98-107); Potassium 4.6 mmoL/L (3.5-5.1); Sodium 140 mmol/L (136-145)
[2025-02-02 08:41] LABS: Alanine Aminotransferase 33 U/L (12-78); Aspartate Amino Transferase 32 U/L (14-36); Blood Urea Nitrogen 14 mg/dl (7-17); Estimated Glomerular Filt Rate 99 ml/min (>60); GFR (African American) 120 ML/MIN (>60)
[2025-02-02 08:42] LABS: Albumin/Globulin Ratio 1.6 (1.1-1.8); Alkaline Phosphatase 74 U/L (38-126); Anion Gap 13.6 mEq/L (5-15); Calcium 9.3 mg/dl (8.4-10.2); Carbon Dioxide 28 mmol/L (22.0-30.0); Chol/HDL Ratio 2.8 (1-3.5); Cholesterol 149 mg/dl (140-200); Globulin 2.8 g/dL (1.3-3.2); Glucose 98 mg/dl (74-100); HDL Cholesterol 53 mg/dl (40-60); Total Protein,Serum 7.3 g/dl (6.3-8.2); Triglycerides 73 mg/dl (30-150); VLDL Cholesterol 15 mg/dL (0-40)
[2025-02-02 08:53] LABS: Direct LDL Cholesterol 59.08 mg/dL (100-129)
[2025-02-02 09:12] LABS: Thyroid Stimulating Hormone 2.43 uIU/mL (0.465-4.68)
== END 2025-02-02 23:59 | disposition home or self-care (01) ==
LOC: LAB 07:58
PROVIDERS: PCP Internal Medicine; Visit Provider Internal Medicine
DX: E66.01 Morbid (severe) obesity due to excess calories (principal); E78.5 Hyperlipidemia, unspecified
CPT/HCPCS: 36415; 80053; 80061; 83036; 84443